=== PATIENT | female | born 1980 | race Two or more races ===

== ENCOUNTER 2017-11-23 12:40 | Emergency (ER) | payer OTHER ==
[2017-11-23 13:08] VITALS: TEMP 98; BMI 25.0
--- NOTE | 2017-11-23 14:20 | PDOC ---
History of Present Illness - General Chief Complaint: Headache Stated Complaint: HEADACHE (PCP SENT) Time Seen by Provider: 11/23/17 14:18 History Source: Patient Exam Limitations: No Limitations - History of Present Illness Initial Comments: 11/23/17 14:19 CHIEF COMPLAINT: Headache HISTORY OF PRESENT ILLNESS: This is a 37-year-old female with a history of epilepsy on Lamictal, Depakote, Vimpat, and Keppra. She presents today for evaluation of headache and vomiting. She reports that she had a seizure, witnessed by her mother, on Monday and hit her head on the floor. Since then, she has had persistent frontal headaches. She reports unsteady gait. She does not have any change in vision or any focal weakness. She notes that she has had nausea/vomiting and generalized weakness since starting Vimpat. Vital signs on arrival are notable for blood pressure 135/50. Neurologist is Dr. Lee. REVIEW OF SYSTEMS: GENERAL/CONSTITUTIONAL: No fever or chills. No weakness. No weight change. HEAD, EYES, EARS, NOSE AND THROAT: No change in vision. No ear pain or discharge. No sore throat. CARDIOVASCULAR: No chest pain or palpitations. RESPIRATORY: No cough, wheezing, or shortness of breath. GASTROINTESTINAL: Vomiting. No diarrhea or constipation. GENITOURINARY: No dysuria, frequency, or change in urination. MUSCULOSKELETAL: No joint or muscle swelling or pain. No neck or back pain. SKIN: No rash or easy bruising. NEUROLOGIC: Headache. No vertigo, loss of consciousness, or loss of sensation. PSYCHIATRIC: No depression or anxiety. ENDOCRINE: No increased thirst. No abnormal weight change. HEMATOLOGIC/LYMPHATIC: No anemia, easy bleeding, or history of blood clots. ALLERGIC/IMMUNOLOGIC: No hives or skin allergy. No latex allergy. PHYSICAL EXAM: GENERAL: The patient is awake, alert, and fully oriented, in no acute distress. HEAD: Normal with no signs of trauma. ENT: Pupils equal, round and reactive to light, extraocular movements intact, sclera anicteric, conjunctiva clear. Neck supple. LUNGS: Clear to auscultation bilaterally. Normal excursion. No respiratory distress or use of accessory muscles. CV: RRR, S1/S2, no MRG. Cap refill < 2 sec. ABDOMEN: Soft, non-distended, non-tender. EXTREMITIES: Normal range of motion, no edema. NEUROLOGICAL: Normal speech, normal gait. CN II-XII grossly intact. Lateral nystagmus. PSYCH: Normal mood, normal affect. SKIN: Warm, dry, normal turgor, no rashes or lesions noted. Past History - Past Medical History Allergies/Adverse Reactions: Allergies Allergy/AdvReac Type Severity Reaction Status Date / Time No Known Allergies Allergy Verified 04/20/15 11:11 Home Medications: Ambulatory Orders Folic Acid 1 tab PO BID 10/16/17 Keppra 1,000 mg PO BID 10/16/17 Keppra 500 mg PO DAILY 10/16/17 Lamotrigine [Lamictal -] 200 mg PO BID 10/16/17 Protonix 40 mg PO DAILY 10/16/17 Ventolin HFA Inhaler - 1 puff IH PRN PRN 10/16/17 Vimpat 100 mg PO BID 10/16/17 Zonegran 100 mg PO BID 10/16/17 Asthma: Yes COPD: No Seizures: Yes - Suicide/Smoking/Psychosocial Hx Smoking History: Never smoked Have you smoked in the past 12 months: No Information on smoking cessation initiated: No Hx Alcohol Use: No Drug/Substance Use Hx: No Substance Use Type: None *Physical Exam - Vital Signs Last Vital Signs Temp Pulse Resp BP Pulse Ox 98.0 F 78 16 135/50 L 100 11/23/17 13:04 11/23/17 13:04 11/23/17 13:04 11/23/17 13:04 11/23/17 13:04 ED Treatment Course - RADIOLOGY Radiology Studies Ordered: Category Date Time Status HEAD CT WITHOUT CONTRAST [CT] Stat CT Scan 11/23/17 14:18 Ordered Medical Decision Making - Medical Decision Making 11/23/17 15:20 A/P: 37-year-old female with headache and unsteady gait s/p seizure and fall/ head trauma on Monday. -CT brain -AED levels -Reglan/benadryl for headache and nausea -Discuss with Dr. Lee 11/23/17 16:30 CT brain: no acute intracranial process. Symptoms improved. Discussed with Dr. Lee who agrees with discharge and will follow up with patient this evening. *DC/Admit/Observation/Transfer Diagnosis at time of Disposition: Closed head injury Qualifiers: Encounter type: initial encounter Qualified Code(s): S09.90XA - Unspecified injury of head, initial encounter Headache Qualifiers: Headache chronicity pattern: acute headache Intractability: not intractable - Discharge Dispostion Disposition: HOME Condition at time of disposition: Stable Decision to Admit order: No - Referrals Referrals: Shahla Lee MD [Staff Physician] - 3 days (Dr. Lee will call you this evening) - Patient Instructions Printed Discharge Instructions: DI for Closed Head Injury Additional Instructions: -Rest and stay well-hydrated -Take Tylenol as needed for headache -Follow up with Dr. Lee -Return for continued vomiting/inability to keep down fluids, or for any other concerning symptoms - Post Discharge Activity
[2017-11-23] MEDS ORDERED: ONDANSETRON *ODT* 4 MG TABLET SL ONE (14:51)
[2017-11-23] MEDS ORDERED: METOCLOPRAMIDE HCL 10 MG TABLET (FP) PO ONE ×2 (14:51→15:30)
[2017-11-23] MEDS ORDERED: ONDANSETRON *ODT* 4 MG TABLET ONE (15:29)
[2017-11-23 16:57] VITALS: BP 101/68; PULSE 75
== END 2017-11-23 16:54 | disposition home or self-care (01) ==
LOC: JER 12:40
DX: G40.909 Epilepsy, unspecified, not intractable, without status epilepticus (principal); S09.8XXA Other specified injuries of head, initial encounter; W18.39XA Other fall on same level, initial encounter; Y93.89 Activity, other specified; Y92.038 Other place in apartment as the place of occurrence of the external cause
CPT/HCPCS: 36415; 70450-TC; 80164; 80175; 80177; 84703; 99282-25; Q0162

== ENCOUNTER 2018-10-09 13:25 | Inpatient (IN) | payer OTHER ==
--- NOTE | 2018-10-09 21:35 | HP ---
Admitting History and Physical - Primary Care Physician PCP: Shahla Lee - Admission History of Present Illness: 37 year sold woman with hx of epilelpsy Came in for elective admission for 72 hours VEEG Poor seziure control on two AEd 37-year-old right-handed very pleasant woman with history of mild mental capacity problem, seizure disorder, and anxiety presented to the hospital for elective admission because of poorly controlled seizure. The problem is patient claims that she doesn't get a seizure her mother insists that she gets generalized tonic-clonic seizure patient in December 2017 had a video EEG monitoring at home which revealed evidence of left temporal complexes consistent with the patient's history of epilepsy. Patient is currently on Keppra 1000 mg twice daily Limitations to Obtaining History: No Limitations - Past Medical History ...LMP: 10/06/18 ...: No - Smoking History Smoking history: Never smoked Have you smoked in the past 12 months: No - Alcohol/Substance Use Hx Alcohol Use: No Home Medications - Allergies Allergies/Adverse Reactions: Allergies Allergy/AdvReac Type Severity Reaction Status Date / Time No Known Allergies Allergy Verified 04/20/15 11:11 - Home Medications Home Medications: Ambulatory Orders Folic Acid 1 mg PO BID 10/09/18 Levetiracetam [Spritam] 1,000 mg PO BID 10/09/18 Zonisamide 100 mg PO BID 10/09/18 Family Disease History - Family Disease History Family History: Denies (Sz) Review of Systems - Review of Systems Constitutional: reports: No Symptoms Eyes: reports: No Symptoms Neurological: reports: Dizziness, Headache, Incoordination Physical Examination Vital Signs: Vital Signs Temperature 97.8 F 10/09/18 17:59 Pulse Rate 70 10/09/18 17:59 Respiratory Rate 16 10/09/18 17:59 Blood Pressure 105/58 L 10/09/18 17:59 O2 Sat by Pulse Oximetry (%) 98 10/09/18 17:59 Constitutional: Yes: Well Nourished Eyes: Yes: WNL HENT: Yes: WNL Neurological: Yes: Alert, Oriented, Babinski negative ...Motor Strength: WNL Problem List - Problems (1) Seizure disorder Assessment/Plan: 1. Sz precautions 2. Keppralevel 3. VEEG with nocturnal digital analysis 4. Careful monitoring of the bradycardia with cardiology consult Code(s): G40.909 - EPILEPSY, UNSP, NOT INTRACTABLE, WITHOUT STATUS EPILEPTICUS
[2018-10-09] MEDS: ZONISAMIDE 100 MG CAPSULE PO SCH (23:13)
[2018-10-10 00:28] LABS: HEMATOCRIT 41.5 % (32.4-45.2); HEMOGLOBIN 13.6 GM/dL (10.7-15.3); MCH 32.3 pg (25.7-33.7); MCHC 32.8 g/dl (32.0-36.0); MEAN CELL VOLUME 98.6 fl (80-96); MEAN PLT VOLUME 9.8 fl (7.5-11.1); PLATELET COUNT 249 K/MM3 (134-434); RBC 4.21 M/mm3 (3.60-5.2); WHITE BLOOD COUNT 7.9 K/mm3 (4.0-10.0)
[2018-10-10 07:51] LABS: ALBUMIN 3.4 g/dl (3.4-5.0); BILIRUBIN,DIRECT 0.1 mg/dL (0.0-0.2); BILIRUBIN,TOTAL 0.2 mg/dL (0.2-1); CALCIUM 8.4 mg/dL (8.5-10.1); CREATININE 0.7 mg/dL (0.55-1.3); POTASSIUM 3.9 mmol/L (3.5-5.1); TOT PROT 6.7 g/dl (6.4-8.2)
[2018-10-10] MEDS ORDERED: PT OWN MED DRAWER 7, Y5N ONE ×2 (09:59→21:11)
--- NOTE | 2018-10-10 10:06 | EKG ---
Test Reason : Blood Pressure : / mmHG Vent. Rate : 072 BPM Atrial Rate : 072 BPM P-R Int : 152 ms QRS Dur : 080 ms QT Int : 400 ms P-R-T Axes : 069 074 051 degrees QTc Int : 438 ms NORMAL SINUS RHYTHM NORMAL ECG WHEN COMPARED WITH ECG OF 29-NOV-2008 20:59, VENT. RATE HAS DECREASED BY 37 BPM Confirmed by MAURA ALLAN, JOSE ANTONIO ([id number]) on 10/10/2018 10:05:54 AM Referred By: Confirmed By:JOSE ANTONIO LORENZO MD
[2018-10-10] MEDS: levETIRAcetam 500 MG TABLET (FP) PO SCH ×2 (10:07→21:19)
[2018-10-10] MEDS: ZONISAMIDE 100 MG CAPSULE PO SCH ×2 (10:07→21:19)
[2018-10-11] MEDS ORDERED: PT OWN MED DRAWER 7, Y5N ONE (08:50)
[2018-10-11] MEDS: ZONISAMIDE 100 MG CAPSULE PO SCH ×2 (09:26→21:25)
[2018-10-11] MEDS: levETIRAcetam 500 MG TABLET (FP) PO SCH ×2 (09:26→21:24)
--- NOTE | 2018-10-11 11:18 | CON.CARD ---
Consult Consult Specialty:: Cardiology Referred by:: Shahla Lacey MD Reason for Consultation:: Evaluate for bradyarrhythmia - History of Present Illness Chief Complaint: Video EEG monitoring History of Present Illness: 37 year old woman with hx of epilelpsy admitted for 72 hours VEEG as she has poor seizure control on 2 AED, 12/2017 VEEG shows left temporal complexes c/w epilepsy, has asymptomatic bradycardia overnight, she denies chest pain, dyspnea , near or true syncope , palpitations, orthopnea, PND or LE edema. - History Source History Provided By: Medical Record Limitations to Obtaining History: Clinical Condition - Past Medical History MARKETING INFORMATION COORDINATOR: Yes: Seizure ...LMP: 10/06/18 ...: No - Alcohol/Substance Use Hx Alcohol Use: No - Smoking History Smoking history: Never smoked Have you smoked in the past 12 months: No Home Medications - Allergies Allergies/Adverse Reactions: Allergies Allergy/AdvReac Type Severity Reaction Status Date / Time No Known Allergies Allergy Verified 04/20/15 11:11 - Home Medications Home Medications: Ambulatory Orders Folic Acid 1 mg PO BID 10/09/18 Levetiracetam [Spritam] 1,000 mg PO BID 10/09/18 Zonisamide 100 mg PO BID 10/09/18 Review of Systems - Review of Systems Neurological: reports: Seizure Vital Signs: Vital Signs Temperature 98.0 F 10/11/18 02:00 Pulse Rate 86 10/11/18 02:00 Respiratory Rate 18 10/11/18 09:00 Blood Pressure 100/63 10/11/18 02:00 O2 Sat by Pulse Oximetry (%) 100 10/11/18 09:00 Constitutional: Yes: No Distress, Calm Neck: Yes: Supple Respiratory: Yes: Regular, CTA Bilaterally Gastrointestinal: Yes: Normal Bowel Sounds, Soft Cardiovascular: Yes: Regular Rate and Rhythm JVD: No Carotid Bruit: No Heart Sounds: Yes: S1, S2 Edema: No - Other Data Labs, Other Data: CBC, BMP 10/10/18 00:00 10/10/18 06:20 NSR @ [address]-T changes Tele: AV block overnight Ejection Fraction %: LVEF > or = 40 % Problem List - Problems (1) Seizure disorder Code(s): G40.909 - EPILEPSY, UNSP, NOT INTRACTABLE, WITHOUT STATUS EPILEPTICUS (2) Bradycardia Code(s): R00.1 - BRADYCARDIA, UNSPECIFIED Assessment/Plan 1. Seizure d/o 2. Bradyarrhythmia with AV block overnight referable to high vagal tone vs undiagnosed OSAS P:1. Holter monitor to assess bradyarrhythmia burden, r/o pauses 2. VEEG and antiseizure meds per neuro, f/u Keppra level 3. Consider sleep study as outpatient 4. Thank you for consultative opportunity
--- NOTE | 2018-10-11 11:37 | PN ---
Progress Note, Physician History of Present Illness: events noted Chart reviewed Cardiology was called to evaluate the patient because of episodes of nocturnal bradycardia patient was not symptomatic. Patient did not have any episode of fainting dizziness shortness of breath associated with the patient was evaluated by cardiology this morning appreciated - Current Medication List Current Medications: Active Medications Levetiracetam (Keppra -) 1,000 mg PO BID [facility] Last Admin: 10/11/18 09:26 Dose: 1,000 mg Zonisamide (Zonegran -) 100 mg PO BID [facility] Last Admin: 10/11/18 09:26 Dose: 100 mg - Objective Vital Signs: Vital Signs Temperature 98 F 10/11/18 10:00 Pulse Rate 73 10/11/18 10:00 Respiratory Rate 18 10/11/18 10:00 Blood Pressure 98/64 10/11/18 10:00 O2 Sat by Pulse Oximetry (%) 100 10/11/18 09:00 Constitutional: Yes: Well Nourished Eyes: Yes: WNL HENT: Yes: WNL Neurological: Yes: Alert, Oriented, Babinski negative ...Motor Strength: WNL Labs: CBC, BMP 10/10/18 00:00 10/10/18 06:20 Problem List - Problems (1) Seizure disorder Assessment/Plan: 1. Continue the video EEG monitoring no events overnight. 2. Follow-up with cardiology. 3. Follow up the Keppra level. Code(s): G40.909 - EPILEPSY, UNSP, NOT INTRACTABLE, WITHOUT STATUS EPILEPTICUS
--- NOTE | 2018-10-11 12:24 | EKG ---
Test Reason : Blood Pressure : / mmHG Vent. Rate : 080 BPM Atrial Rate : 080 BPM P-R Int : 148 ms QRS Dur : 084 ms QT Int : 386 ms P-R-T Axes : 070 058 033 degrees QTc Int : 445 ms NORMAL SINUS RHYTHM NORMAL ECG WHEN COMPARED WITH ECG OF 09-OCT-2018 17:56, NONSPECIFIC T WAVE ABNORMALITY NOW EVIDENT IN INFERIOR LEADS Confirmed by MARLENY STAUFFER MD ([id number]) on 10/11/2018 12:23:32 PM [facility] Confirmed By:MARLENY STAUFFER MD
[2018-10-11 14:41] VITALS: BMI 30.8
[2018-10-12 06:57] VITALS: BP 94/68; PULSE 68; TEMP 98.1
[2018-10-12] MEDS ORDERED: PT OWN MED DRAWER 7, Y5N ONE (09:03)
--- NOTE | 2018-10-12 09:15 | PN ---
Progress Note, Physician Chief Complaint: Events noted Not in distress History of Present Illness: Patient was seen and examined. Awake and alert. Chart was reviewed Denies chest pain, SOB or palpitations EEG in progress - Current Medication List Current Medications: Active Medications Levetiracetam (Keppra -) 1,000 mg PO BID [facility] Last Admin: 10/11/18 21:24 Dose: 1,000 mg Zonisamide (Zonegran -) 100 mg PO BID [facility] Last Admin: 10/11/18 21:25 Dose: 100 mg - Objective Vital Signs: Vital Signs Temperature 98.1 F 10/12/18 06:56 Pulse Rate 68 10/12/18 06:56 Respiratory Rate 18 10/12/18 06:56 Blood Pressure 94/68 10/12/18 06:56 O2 Sat by Pulse Oximetry (%) 96 10/11/18 21:00 Eyes: Yes: PERRL HENT: Yes: Atraumatic Neck: Yes: Supple Cardiovascular: Yes: Regular Rate and Rhythm, S1, S2 Respiratory: Yes: CTA Bilaterally Gastrointestinal: Yes: Normal Bowel Sounds, Soft. No: Tenderness Edema: No Labs: CBC, BMP 10/10/18 00:00 10/10/18 06:20 Problem List - Problems (1) Bradycardia Code(s): R00.1 - BRADYCARDIA, UNSPECIFIED (2) Seizure disorder Code(s): G40.909 - EPILEPSY, UNSP, NOT INTRACTABLE, WITHOUT STATUS EPILEPTICUS Assessment/Plan 1. Seizure disorder 2. Bradyarrhythmia with AV block referable to high vagal tone vs. undiagnosed OSAS PLAN: 1. Holter monitor to assess bradyarrhythmia burden 2. EEG and continue Neuro recommendation 3. Consider sleep study as outpatient 4. Echocardiography to assess LV/RV and valvular function Edd Morrow MD
[2018-10-12] MEDS: ZONISAMIDE 100 MG CAPSULE PO SCH (09:22)
[2018-10-12] MEDS: levETIRAcetam 500 MG TABLET (FP) PO SCH (09:22)
--- NOTE | 2018-10-12 13:11 | ECHO ---
Name: SABRINA IRWIN Exam:Adult Echocardiogram Study Date: 10/12/2018 11:41 AM Age: 37 yrs Reason For Study: BRADYARRHYTHMIA Height: 67 in Weight: 198 lb BSA: 2.0 m2 MMode/2D Measurements & Calculations IVSd: 0.78 cm Ao root diam: 2.6 cm LVIDd: 4.0 cm LA dimension: 2.7 cm LVIDs: 2.7 cm LVPWd: 0.79 cm EDV(Teich): 71.1 ml LVOT diam: 2.0 cm ESV(Teich): 26.7 ml Doppler Measurements & Calculations MV E max esa: 47.0 cm/sec Ao V2 max: 122.5 cm/sec MV A max esa: 58.2 cm/sec Ao max P.0 mmHg MV E/A: 0.81 Ao V2 mean: 83.7 cm/sec MV dec time: 0.29 sec Ao mean P.2 mmHg Ao V2 VTI: 21.5 cm JARED(I,D): 1.6 cm2 AI P1/2t: 618.3 msec JARED(V,D): 1.7 cm2 AI max esa: 256.5 cm/sec LV V1 max P.0 mmHg AI max P.4 mmHg LV V1 mean P.0 mmHg AI dec slope: 121.5 cm/sec2 LV V1 max: 69.9 cm/sec LV V1 mean: 47.9 cm/sec LV V1 VTI: 11.5 cm SV(LVOT): 35.0 ml TR max esa: 175.3 cm/sec TR max P.4 mmHg Left Ventricle Ejection Fraction = 55-60%. Left ventricular systolic function is normal. The transmitral spectral Do ppler flow pattern is suggestive of impaired LV relaxation. Right Ventricle The right ventricle is normal in size and function. Atria Normal left and right atrial size and function. Mitral Valve The mitral valve is normal in structure and function. There is no mitral valve stenosis. There is tra ce to mild mitral regurgitation. Tricuspid Valve The tricuspid valve is normal in structure and function. There is mild tricuspid regurgitation. Right ventricular systolic pressure is normal. Aortic Valve The aortic valve opens well. No hemodynamically significant valvular aortic stenosis. Mild aortic regurgitation. Pulmonic Valve The pulmonic valve is not well seen, but is grossly normal. There is no pulmonic valvular stenosis. T here is no pulmonic valvular regurgitation. Great Vessels The aortic root is normal size. Pericardium/Pleura There is no pericardial effusion. Interpretation Summary Ejection Fraction = 55-60%. Left ventricular systolic function is normal. The transmitral spectral Doppler flow pattern is suggestive of impaired LV relaxation. The right ventricle is normal in size and function. There is trace to mild mitral regurgitation. There is mild tricuspid regurgitation. Right ventricular systolic pressure is normal. Mild aortic regurgitation. There is no pericardial effusion. MD Zamora *Joy 10/12/2018 01:11 PM
--- NOTE | 2018-10-12 13:59 | EKG ---
Test Reason : Blood Pressure : / mmHG Vent. Rate : 084 BPM Atrial Rate : 084 BPM P-R Int : 146 ms QRS Dur : 088 ms QT Int : 380 ms P-R-T Axes : 075 055 048 degrees QTc Int : 449 ms NORMAL SINUS RHYTHM NONSPECIFIC T WAVE ABNORMALITY ABNORMAL ECG WHEN COMPARED WITH ECG OF 11-OCT-2018 09:37, NO SIGNIFICANT CHANGE WAS FOUND Confirmed by SAMREEN DAVALOS MD ([id number]) on 10/12/2018 1:58:53 PM Referred By: [facility] Confirmed By:SAMREEN DAVALOS MD
--- NOTE | 2018-10-12 14:37 | HOL ---
Hook-up date: 2018-10-11 12:59:00 Duration: 23:31:00 Test Indications: BRADYCARDIA R/O PAUSES Medications: [id number] QRS complexes * Ventricular ectopics which represent % of total QRS comp. * Supraventricular ectopics which represent % of total QRS comp. * Paced QRS complexs which represent % of total QRS comp. * % of Time Classified as Noise VENTRICULAR ECTOPY * Isolated * Bigeminal Cycles * Couplets * Runs * Beats in Runs * Beats LONGEST at * BPM at :: -- * Beats FASTEST at * BPM at :: -- SUPRAVENTRICULAR ECTOPY * Isolated * Couplets * Runs * Beats in Runs * Beats LONGEST at * BPM at :: -- * Beats FASTEST at * BPM at :: -- HEART RATES 45 MIN at 05:47:44 2018-10-12 79 AVG 145 MAX at 15:27:54 2018-10-11 LONGEST RR 1.424 secs at 05:47:39 2018-10-12 Normal sinus rhythm with average rate 79bpm. Periods of sinus tachycardia. Sinus bradycardia noted, during sleep hours. No significant pauses. No sustained arrhythmias, ventricular ectopy or diary entries. Confirmed by SAMREEN DAVALOS MD ([id number]) on 10/12/2018 2:37:25 PM Referred By: SHELLY PAULINO DR Overread By: SAMREEN DAVALOS MD
== END 2018-10-12 15:05 | disposition home or self-care (01) | DRG 53 ==
LOC: J4S 17:05
PROVIDERS: ADMIT Psychiatry & Neurology Neurology; ATTEND Psychiatry & Neurology Neurology
DX: G40.909 Epilepsy, unspecified, not intractable, without status epilepticus (principal); I49.8 Other specified cardiac arrhythmias; F41.9 Anxiety disorder, unspecified; G47.33 Obstructive sleep apnea (adult) (pediatric)
CPT/HCPCS: 36415; 80048; 80076; 80177; 85027; 93005; 93010; 93225; 93226; 93306-TC; 95951

== ENCOUNTER 2019-10-01 09:34 | Inpatient (IN) | payer OTHER ==
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
[2019-10-01] MEDS ORDERED: ACETAMINOPHEN 500 MG TABLET (FP) PO PRN (18:04)
[2019-10-01] MEDS ORDERED: LORazepam 2 MG/ML SDV VIAL IVPUSH PRN (18:06)
[2019-10-01 18:45] LABS: HEMATOCRIT 41.6 % (32.4-45.2); HEMOGLOBIN 13.6 GM/dl (10.7-15.3); MCH 32.5 pg (25.7-33.7); MCHC 32.8 g/dl (32.0-36.0); MEAN CELL VOLUME 98.9 fl (80-96); MEAN PLT VOLUME 9.9 fl (7.5-11.1); PLATELET COUNT 248 K/MM3 (134-434); RDW 12.7 % (11.6-15.6); WHITE BLOOD COUNT 11.5 K/mm3 (4.0-10.8)
[2019-10-01] MEDS: levETIRAcetam 500 MG TABLET (FP) PO SCH (21:45)
[2019-10-01] MEDS: ZONISAMIDE 100 MG CAPSULE PO SCH (21:47)
[2019-10-02] MEDS: ZONISAMIDE 100 MG CAPSULE PO SCH ×2 (10:25→22:15)
[2019-10-02] MEDS: levETIRAcetam 500 MG TABLET (FP) PO SCH ×2 (10:25→22:14)
--- NOTE | 2019-10-02 14:42 | PN ---
Progress Note, Physician History of Present Illness: events noted chart reviewed patient is under the elective video EEG monitoring no report of any seizure activity no report from the nurses of any problem. - Current Medication List Current Medications: Active Medications Acetaminophen (Tylenol -) 500 mg PO Q6H PRN PRN Reason: FEVER OR PAIN Levetiracetam (Keppra -) 1,000 mg PO BID [facility] Last Admin: 10/01/19 21:45 Dose: 1,000 mg Documented by: Lorazepam (Ativan Injection -) 1 mg IVPUSH DAILY PRN PRN Reason: SEIZURE Zonisamide (Zonegran -) 100 mg PO BID [facility] Last Admin: 10/01/19 21:47 Dose: 100 mg Documented by: - Objective Vital Signs: Vital Signs Temperature 99.5 F 10/02/19 14:34 Pulse Rate 72 10/02/19 14:34 Respiratory Rate 16 10/02/19 14:34 Blood Pressure 95/62 10/02/19 14:34 O2 Sat by Pulse Oximetry (%) 100 10/02/19 14:34 Constitutional: Yes: Well Nourished Eyes: Yes: WNL HENT: Yes: WNL Neurological: Yes: Alert, Oriented, Babinski negative, Cran Nerves II-XII Intact Labs: CBC, BMP 10/01/19 18:15 Problem List - Problems (1) Closed head injury Assessment/Plan: 1. Seizure precautions. 2. Continue the video EEG monitoring. 3. Keppra level. 4. Continue Zonegran the same Code(s): S09.90XA - UNSPECIFIED INJURY OF HEAD, INITIAL ENCOUNTER (2) Headache Code(s): R51 - HEADACHE (3) Seizure disorder Code(s): G40.909 - EPILEPSY, UNSP, NOT INTRACTABLE, WITHOUT STATUS EPILEPTICUS
[2019-10-02] MEDS ORDERED: PT OWN MED DRAWER 7, Y5N ONE (22:07)
[2019-10-03] MEDS ORDERED: PT OWN MED DRAWER 7, Y5N ONE (09:17)
[2019-10-03] MEDS: ZONISAMIDE 100 MG CAPSULE PO SCH ×2 (09:41→22:54)
[2019-10-03] MEDS: levETIRAcetam 500 MG TABLET (FP) PO SCH (09:41)
--- NOTE | 2019-10-03 20:32 | PN ---
Progress Note, Physician History of Present Illness: I walked in and the patient said hi and developed a seizure GTC Needed Ativan 4mg No IV access - Current Medication List Current Medications: Active Medications Acetaminophen (Tylenol -) 500 mg PO Q6H PRN PRN Reason: FEVER OR PAIN Levetiracetam (Keppra -) 1,000 mg PO BID [facility] Last Admin: 10/03/19 09:41 Dose: 1,000 mg Documented by: Lorazepam (Ativan Injection -) 1 mg IVPUSH DAILY PRN PRN Reason: SEIZURE Zonisamide (Zonegran -) 100 mg PO BID [facility] Last Admin: 10/03/19 09:41 Dose: 100 mg Documented by: - Objective Vital Signs: Vital Signs Temperature 99.0 F 10/03/19 14:00 Pulse Rate 83 10/03/19 14:00 Respiratory Rate 18 10/03/19 14:00 Blood Pressure 100/66 10/03/19 14:00 O2 Sat by Pulse Oximetry (%) 99 10/03/19 14:00 Constitutional: Yes: Well Nourished Eyes: Yes: WNL Neurological: Yes: Oriented, Babinski negative, Cran Nerves II-XII Intact Labs: CBC, BMP 10/01/19 18:15 Problem List - Problems (1) Closed head injury Assessment/Plan: 1. Ativan IM 2 .IV access 3. Keppra 500 additional 4. Keppra level 5. Seizure precaution 6. Might have to add Vimpat Code(s): S09.90XA - UNSPECIFIED INJURY OF HEAD, INITIAL ENCOUNTER (2) Headache Code(s): R51 - HEADACHE (3) Seizure disorder Code(s): G40.909 - EPILEPSY, UNSP, NOT INTRACTABLE, WITHOUT STATUS EPILEPTICUS
[2019-10-03] MEDS ORDERED: LORazepam 2 MG/ML SDV VIAL IM ONE (21:54)
[2019-10-03] MEDS ORDERED: LORazepam 2 MG/ML SDV VIAL ONE ×2 (21:54→22:23)
[2019-10-03] MEDS ORDERED: levETIRAcetam 500 MG/5 ML INJECTION VIAL IVPB ONE ×2 (22:02)
[2019-10-03] MEDS: LORazepam 2 MG/ML SDV VIAL IVPUSH PRN ×2 (22:15→22:30)
[2019-10-03] MEDS: levETIRAcetam 500 MG/5 ML INJECTION VIAL IVPB SCH (22:21)
[2019-10-03] MEDS ORDERED: VALPROATE SODIUM 500 MG/5 ML VIAL IVPB ONE (23:00)
[2019-10-03] MEDS ORDERED: SODIUM CHLORIDE 1,000 ML IV SCH (23:45)
[2019-10-04] MEDS ORDERED: ETOMIDATE 40 MG/20 ML VIAL IVPUSH ONE (00:03)
[2019-10-04] MEDS ORDERED: SUCCINYLCHOLINE CHLORIDE 200 MG/10 ML VIAL IVPUSH ONE (00:04)
[2019-10-04] MEDS ORDERED: PROPOFOL 200 MG/20 ML VIAL IVPUSH ONE (00:04)
[2019-10-04] MEDS ORDERED: VALPROATE SODIUM 500 MG/5 ML VIAL IVPB ONE (00:05)
--- NOTE | 2019-10-04 00:16 | PDOC ---
*Physical Exam - Vital Signs Last Vital Signs Temp Pulse Resp BP Pulse Ox 98.6 F 124 H 16 108/78 99 10/03/19 22:00 10/03/19 22:00 10/03/19 22:00 10/03/19 22:00 10/03/19 22:00 - Physical Exam 10/04/19 00:11 Called to patient's bedside at 10:30 pm secondary to status epilepticus. When I initially arrived at the patient's bedside, she was lethargic and had rhythmic twitching movements every time she was stimulated. Keppra load ordered by Dr. Lee had not been given because IV had inadvertently become disconnected. After keppra load was given, patient became more tachycardic and somulent. She also had dilated pupils and rhythmic eye movements. Depakene load started. I discussed the case with Dr. Lee, who agreed that the patient should be intubated prior to transfer to [facility] ICU. ED Treatment Course - LABORATORY CBC & Chemistry Diagram: 10/01/19 18:15 - ADDITIONAL ORDERS Additional order review: 10/01/19 18:15 RBC 4.20 MCV 98.9 H MCHC 32.8 RDW 12.7 MPV 9.9 - RADIOLOGY Radiology Studies Ordered: Category Date Time Status CXRPORT [CHEST X-RAY PORTABLE*] [RAD] Stat Radiology 10/04/19 00:05 Ordered - Medications Given in the ED: ED Medications Discontinued Medications Generic Name Dose Route Start Last Admin Trade Name Freq PRN Reason Stop Dose Admin Levetiracetam 1,000 mg 10/01/19 22:00 10/03/19 09:41 Keppra - PO 1,000 mg BID [facility]TO Administration Lorazepam 2 mg 10/03/19 21:54 10/03/19 20:30 Ativan Injection - IM 10/03/19 21:55 2 mg ONCE ONE Administration Medical Decision Making - Critical Care Time Total Critical Care Time (minutes): 120 Critical Care Statement: The care of this patient involved high complexity decision making to prevent further life threatening deterioration of the patient's condition and/or to evaluate & treat vital organ system(s) failure or risk of failure. Discharge - Discharge Information Problems reviewed: Yes Clinical Impression/Diagnosis: Status epilepticus - Follow up/Referral - Patient Discharge Instructions - Post Discharge Activity Intubation - Intubation Reason for Intubation: Other (status epilepticus) Intubation Method: orotracheal Blade used: Mac Tube Size (cm): 7.5 Tube position @ lip (cm): 22 Tube position confirmed by: Direct visualization, CO2 detector Breath Sounds after Intubation: equal Post Intubation Xray: Yes
[2019-10-04] MEDS: PROPOFOL 1,000,000 MCG/100 ML VIAL IVPUSH SCH ×3 (01:45→22:45)
[2019-10-04] MEDS ORDERED: MIDAZOLAM 100 MG in SODIUM CHLORIDE 100 ML IVPB SCH (02:15)
[2019-10-04 02:37] LABS: URINE APPEARANCE CLEAR; URINE BILIRUBIN NEGATIVE (NEGATIVE); URINE COLOR YELLOW; URINE GLUCOSE (UA) NEGATIVE (NEGATIVE); URINE KETONE NEGATIVE (NEGATIVE); URINE LEUK ESTERASE NEGATIVE (NEGATIVE); URINE NITRITE NEGATIVE (NEGATIVE); URINE PROTEIN NEGATIVE (NEGATIVE); URINE UROBILINOGEN 0.2 mg/dL (0.2-1.0)
[2019-10-04] MEDS ORDERED: MIDAZOLAM IN 0.9 % SOD.CHLORID 100 MG/100 ML PLAST..BAG IVPB SCH (02:37)
[2019-10-04 02:52] LABS: COCAINE, UR NEGATIVE ng/ml (CUTOFF=300); METHADONE, UR NEGATIVE ng/ml (CUTOFF=300); OPIATES, URI NEGATIVE ng/ml (CUTOFF=300); PHENCYCLIDINE,URINE NEGATIVE ng/ml (CUTOFF=25); URINE BARBITURATES NEGATIVE ng/ml (CUTOFF=200); URINE BENZODIAZEPINES NEGATIVE ng/ml (CUTOFF=200)
[2019-10-04] MEDS: MIDAZOLAM IN 0.9 % SOD.CHLORID 100 MG/100 ML PLAST..BAG IVPB SCH ×2 (03:00→20:00)
[2019-10-04 03:09] LABS: URINE AMPHETAMINES NEGATIVE ng/ml (CUTOFF=500)
--- NOTE | 2019-10-04 03:52 | CONSULT ---
Consultation: REQUESTING PROVIDER: Dr. Shahla Lee CONSULT REQUEST: We have been asked to medically evaluate this patient for Refractory Generalized Status Epilepticus. HISTORY OF PRESENT ILLNESS: This is a 38 y/o F with a PMHx of anxiety, fibromylagia, and seizure disorder (on 2 antiseizure medications) sent from [facility] for mgmt of refractory status epilepticus. Pt was at [facility] for video EEG monitoring and while speaking to the physician, the pt began to seize. Pt was lorazepam 2 mg with minimal effect and another was needed (Total of 6 given for 3 separate seizure episodes per nursing report. Pt became somnolent with dilated pupils and rhythmic eye movements so call placed to ED (Dr. Cruz) who gave 1000 mg of depakote. Pt was sedated with propofol and intubated at that time and transferred to our ICU. REVIEW OF SYSTEMS: unobtainable given pt sedated and intubated. PHYSICAL EXAMINATION Vital Signs - 24 hr 10/03/19 10/03/19 10/03/19 06:00 09:00 14:00 Temperature 97.7 F 99.0 F Pulse Rate 61 83 Respiratory 18 18 18 Rate Blood Pressure 94/61 100/66 O2 Sat by Pulse 100 100 99 Oximetry (%) 10/03/19 10/04/19 22:00 01:58 Temperature 98.3 F Pulse Rate 114 H Respiratory 20 27 H Rate Blood Pressure 108/78 O2 Sat by Pulse 97 100 Oximetry (%) GENERAL: pt sedated RASS -3 HEENT: Normal with no signs of trauma. Pupils equal, round and reactive to light. LUNGS: Breath sounds equal, clear to auscultation bilaterally. No wheezes, and no crackles. No accessory muscle use. HEART: Regular rate and rhythm, normal S1 and S2 without murmur, rub or gallop. ABDOMEN: Soft, not distended, normoactive bowel sounds. UPPER EXTREMITIES: 2+ pulses, warm, well-perfused. No cyanosis. No clubbing. Cap refill <2 seconds. No peripheral edema. 20 gauge IV on RUE LOWER EXTREMITIES: 2+ pulses, warm, well-perfused. No calf tenderness. No peripheral edema. 20 gauge IV on LLE NEUROLOGICAL: withdraws to pain until sedation increased and had some ? jerking movements so versed drip increased SKIN: Warm, dry, normal turgor, ecchymoses in L antecubital Laboratory Results - last 24 hr 10/04/19 10/04/19 10/04/19 02:10 02:10 02:10 POC Glucometer Urine Color Yellow Urine Appearance Clear Urine pH 7.0 Ur Specific Atkinson 1.010 Urine Protein Negative Urine Glucose (UA) Negative Urine Ketones Negative Urine Blood Negative Urine Nitrite Negative Urine Bilirubin Negative Urine Urobilinogen 0.2 Ur Leukocyte Esterase Negative Urine HCG, Qual Negative Opiates Screen Negative Methadone Screen Negative Barbiturate Screen Negative Phencyclidine Screen Negative Ur Amphetamines Screen Negative MDMA (Ecstasy) Screen Negative Benzodiazepines Screen Negative Cocaine Screen Negative U Marijuana (THC) Screen Negative 10/04/19 03:24 POC Glucometer 104 Urine Color Urine Appearance Urine pH Ur Specific [place] Urine Protein Urine Glucose (UA) Urine Ketones Urine Blood Urine Nitrite Urine Bilirubin Urine Urobilinogen Ur Leukocyte Esterase Urine HCG, Qual Opiates Screen Methadone Screen Barbiturate Screen Phencyclidine Screen Ur Amphetamines Screen MDMA (Ecstasy) Screen Benzodiazepines Screen Cocaine Screen U Marijuana (THC) Screen Active Medications Generic Name Dose Route Start Last Admin Trade Name Freq PRN Reason Stop Dose Admin Acetaminophen 500 mg 10/01/19 18:04 Tylenol - PO Q6H PRN FEVER OR PAIN Chlorhexidine Gluconate 1 applic 10/04/19 22:00 Hibiclens For Decolonization - TP HS [facility] Enoxaparin Sodium 40 mg 10/04/19 10:00 Lovenox - SQ DAILY [facility] Sodium Chloride 1,000 mls @ 75 mls/hr 10/03/19 23:45 10/04/19 00:55 Normal Saline - IV 75 mls/hr ASDIR [facility] Administration Propofol 1,000,000 mcg in 100 mls @ 2.715 mls/hr 10/04/19 00:15 Diprivan - IVPUSH 10/05/19 23:59 TITR [facility] Protocol 5 MCG/KG/MIN Midazolam HCl 100 mg in 100 mls @ 1 mls/hr 10/04/19 03:30 Midazolam 100mg/100ml-0.9%Nacl IVPB TITR [facility] Protocol 1 MG/HR Levetiracetam 1,000 mg 10/03/19 22:00 10/03/19 22:21 Keppra Injection - IVPB 1,000 mg BID [facility] Administration Lorazepam 1 mg 08/25/20 18:06 Ativan Injection - IVPUSH DAILY PRN SEIZURE Lorazepam 2 mg 10/04/19 10:00 10/03/19 20:15 Ativan Injection - IM 2 mg DAILY PRN Administration ANXIETY Lorazepam 2 mg 10/04/19 00:37 10/03/19 22:30 Ativan Injection - IVPUSH 2 mg Q15M PRN Administration SEIZURES Mupirocin 1 applic 10/04/19 10:00 Bactroban Ointment (For Decolonization) - NS 10/09/19 09:59 BID [facility] Zonisamide 100 mg 10/01/19 22:00 10/03/19 22:54 Zonegran - PO Not Given BID [facility] ASSESSMENT/PLAN: 38 YO F PMH anxiety, fibromylagia, and seizure disorder sent from [facility] for status epilepticus. #Neuro - intubated and sedated with Dhaliwal agitation and sedation scale (RASS) -5 after increased sedation -Refractory Generalized Status Epilepticus s/p 6mg ativan in 3 separate pushes for multiple seizure episodes. Pt subsequently intubated and sedated with propofol in [facility] by Dr. Cruz. Pt loaded with 1000 depakote and Keppra as well. - As per neuro recs, upon arrival we bolused with midazolam and started continuous infusion for both sedation and cessation of her seizure like activity. - neuro checks q2h for seizure like activity in which nurse notified she may go as high as 18 mg bolus (9-18 per her wt according to uptodate 0.2mg/kg bolus) Confirmed by pharmacy. -seizure, fall, aspiration precautions -utox negative, UA negative, negative for , glucose 107 -f/u Keppra level in AM as pt is a very difficult stick and abg to follow in AM as well after multiple failed attempts with ultrasound. -c/w Zonegran, may start vimpat in AM as per neuro recs #ID -Leukocytosis with a WBC count of 11.5. - pt is afebrile w/o signs of sepsis - likely reactive from seizure - rpt cbc in am -f/u CXR in AM #Cardio - tachycardic on transport, EKG ordered awaiting result - Echo from 10/12/2018: EF55-60%, LV systolic function normal, mild mitral/tricuspid regurg. - pt had episode of bradycardia during 10/2018 admission #Pulm - intubated TV 450 PEEP 5, RR12 ,50% O2 and sedated on prop and versed with a RASS of -5. -CXR performed after the pt was intubated at [facility] confirmed proper placement. D/w . No acute findings on cxr. -f/u repeat CXR in AM #Renal - no acute renal issues at this time -f/u CMP #Psych h/o anxiety continue home meds #DVT ppx Lovenox 40 daily #FEN NS @100 ml/hr Monitor lytes NPO, speech/swallow consult in AM Dispo: We will continue to follow the patient. Thank you for this consultative opportunity. ATTENDING PHYSICIAN STATEMENT I saw and evaluated the patient. I reviewed the resident's note and discussed the case with the resident. I agree with the resident's findings and plan as documented. SUBJECTIVE: OBJECTIVE: ASSESSMENT AND PLAN:
[2019-10-04 06:12] LABS: ARTERIAL BLD GAS O2 SATURATION 98.9 mmHg (95-98); ARTERIAL BLOOD GAS BASE EXCESS -4.3 mmol/L (-2-2); ARTERIAL BLOOD GAS PO2 149.8 mmHg (80-100); ARTERIAL BLOOD GAS pH 7.364 (7.350-7.450)
[2019-10-04 06:47] LABS: ALLENS TEST POSITIVE
[2019-10-04 06:49] LABS: VENT MODE A/C; VENT RATE 12
[2019-10-04 07:27] LABS: ALBUMIN 3.8 g/dl (3.4-5.0); BILIRUBIN,TOTAL 0.2 mg/dL (0.2-1); BLOOD UREA NITROGEN 12.4 mg/dL (7-18); CALCIUM 8.7 mg/dL (8.5-10.1); CREATININE 0.8 mg/dL (0.55-1.3); MAGNESIUM 2.3 mg/dL (1.8-2.4); PHOSPHOROUS 3.4 mg/dL (2.5-4.9); TOT PROT 7.6 g/dl (6.4-8.2)
[2019-10-04 08:59] LABS: BASO % 0.6 % (0-2.0); EOS % 0.5 % (0-4.5); HEMOGLOBIN 13.9 GM/dL (10.7-15.3); LYMPH % 20.4 % (8-40); MCH 31.3 pg (25.7-33.7); MCHC 33.1 g/dl (32.0-36.0); MEAN CELL VOLUME 94.6 fl (80-96); MEAN PLT VOLUME 10.4 fl (7.5-11.1); MONO % 6.1 % (3.8-10.2); NEUT % 72.4 % (42.8-82.8); PLATELET COUNT 273 K/MM3 (134-434); RBC 4.44 M/mm3 (3.60-5.2); RDW 13.1 % (11.6-15.6); WHITE BLOOD COUNT 14.9 K/mm3 (4.0-10.0)
[2019-10-04] MEDS ORDERED: LORazepam 2 MG/ML SDV VIAL IM PRN (10:00)
[2019-10-04] MEDS: levETIRAcetam 500 MG/5 ML INJECTION VIAL IVPB SCH ×2 (10:06→22:03)
[2019-10-04] MEDS: ENOXAPARIN NA (PORCINE) 40 MG/0.4 ML DISP.SYRIN SQ SCH (10:08)
[2019-10-04] MEDS: SODIUM CHLORIDE 1,000 ML IV SCH (10:08)
[2019-10-04] MEDS: MUPIROCIN 2% TOPICAL OINTMENT FOR DECOLONIZATION NS SCH ×2 (10:11→22:04)
--- NOTE | 2019-10-04 10:58 | EKG ---
Test Reason : Blood Pressure : / mmHG Vent. Rate : 112 BPM Atrial Rate : 112 BPM P-R Int : 118 ms QRS Dur : 078 ms QT Int : 328 ms P-R-T Axes : -03 081 008 degrees QTc Int : 447 ms POOR DATA QUALITY, INTERPRETATION MAY BE ADVERSELY AFFECTED SINUS TACHYCARDIA NONSPECIFIC ST ABNORMALITY WHEN COMPARED WITH ECG OF 12-OCT-2018 09:39, NO SIGNIFICANT CHANGE WAS FOUND Confirmed by ANOOP ALLAN, SAMREEN ([id number]) on 10/04/2019 10:57:56 AM Referred By: Cosmo Cooper Confirmed By:SAMREEN DAVALOS MD
--- NOTE | 2019-10-04 11:29 | PN ---
Teaching Attending Note Name of Resident: Tanika Little ATTENDING PHYSICIAN STATEMENT I saw and evaluated the patient. I reviewed the resident's note and discussed the case with the resident. I agree with the resident's findings and plan as documented. SUBJECTIVE: Pt seen and examined in the ICU. Remains intubated, sedated. Still some b reakthrough seizure activity. OBJECTIVE: Vital Signs Period Temp Pulse Resp BP Sys/Henderson Pulse Ox Last 24 Hr 98.3 F-99.0 F 83-124 16-27 93-122/66-78 97-100 Intake & Output 10/01/19 10/02/19 10/03/19 10/04/19 23:59 23:59 23:59 23:59 Intake Total 1275 500 830.5 Output Total 0 Balance 1275 500 830.5 Weight 86.183 kg 90.804 kg 90.492 kg 92.705 kg Gen: intubated, sedated Heart: RRR Lung: decreased breath sounds at the bases Abd: soft, nontender Ext: no edema CBC, BMP 10/04/19 06:10 10/04/19 06:10 Active Medications Acetaminophen (Tylenol -) 500 mg PO Q6H PRN PRN Reason: FEVER OR PAIN Chlorhexidine Gluconate (Hibiclens For Decolonization -) 1 applic TP HS [facility] Enoxaparin Sodium (Lovenox -) 40 mg SQ DAILY [facility] Last Admin: 10/04/19 10:08 Dose: 40 mg Documented by: Propofol (Diprivan -) 1,000,000 mcg in 100 mls @ 2.715 mls/hr IVPUSH TITR [facility]; Protocol Stop: 10/05/19 23:59 Last Titration: 10/04/19 10:26 Dose: 50 mcg/kg/min, 27.148 mls/hr Documented by: Midazolam HCl (Midazolam 100mg/100ml-0.9%Nacl) 100 mg in 100 mls @ 1 mls/hr IVPB TITR [facility]; Protocol Last Infusion: 10/04/19 10:00 Dose: 10 mg/hr, 10 mls/hr Documented by: Sodium Chloride (Normal Saline -) 1,000 mls @ 100 mls/hr IV ASDIR [facility] Last Admin: 10/04/19 10:08 Dose: 100 mls/hr Documented by: Levetiracetam (Keppra Injection -) 1,000 mg IVPB BID [facility] Last Admin: 10/04/19 10:06 Dose: 1,000 mg Documented by: Lorazepam (Ativan Injection -) 1 mg IVPUSH DAILY PRN PRN Reason: SEIZURE Lorazepam (Ativan Injection -) 2 mg IM DAILY PRN PRN Reason: ANXIETY Last Admin: 10/03/19 20:15 Dose: 2 mg Documented by: Lorazepam (Ativan Injection -) 2 mg IVPUSH Q15M PRN PRN Reason: SEIZURES Last Admin: 10/03/19 22:30 Dose: 2 mg Documented by: Mupirocin (Bactroban Ointment (For Decolonization) -) 1 applic NS BID [facility] Stop: 10/09/19 09:59 Last Admin: 10/04/19 10:11 Dose: 1 applic Documented by: Zonisamide (Zonegran -) 100 mg PO BID [facility] Last Admin: 10/03/19 22:54 Dose: Not Given Documented by: ASSESSMENT AND PLAN: Acute Respiratory Failure Status Epilepticus - titrate sedation - titrate antiepileptics - f/u keppra level - when seizures controlled, lighten sedation to assess mental status - spontaneous breathing trials when off sedation - DVT prophylaxis - continue ICU monitoring critical care time spent in reviewing chart, evaluating patient and formulating plan 35 min
--- NOTE | 2019-10-04 12:03 | PN ---
Physical Exam: SUBJECTIVE: Patient seen and examined bedside, intubated, sedated on propofol and midazolam OBJECTIVE: Vital Signs 10/04/19 10/04/19 10/04/19 04:39 05:00 07:00 Pulse Rate 101 H 107 H Respiratory 21 H 22 H 19 Rate Blood Pressure 93/69 100/76 O2 Sat by Pulse 100 100 100 Oximetry (%) GENERAL: Patient intubated and sedated HEENT: PERRL LUNGS: Breath sounds equal, CTA BL HEART: RRR, normal S1 and S2 ABDOMEN: Soft, not distended, normoactive bowel sounds. EXTREMITIES: warm, well-perfused. NEUROLOGICAL: withdraws to pain SKIN: Warm, dry Laboratory Results - last 24 hr 10/04/19 10/04/19 10/04/19 02:10 02:10 02:10 WBC RBC Hgb Hct MCV MCH MCHC RDW Plt Count MPV Absolute Neuts (auto) Neutrophils % Lymphocytes % Monocytes % Eosinophils % Basophils % Nucleated RBC % Anticoagulation Therapy Puncture Site Patient Temperature ABG pH ABG pCO2 ABG pO2 ABG HCO3 ABG O2 Sat (Measured) ABG O2 Content ABG Base Excess Kip Test Patient On Oxygen O2 Delivery Device Oxygen Flow Rate Vent Mode Vent Rate Mechanical Rate PEEP Pressure Support Vent Sodium Potassium Chloride Carbon Dioxide Anion Gap BUN Creatinine Est GFR (CKD-EPI)AfAm Est GFR (CKD-EPI)NonAf POC Glucometer Random Glucose Calcium Phosphorus Magnesium Total Bilirubin AST ALT Alkaline Phosphatase Total Protein Albumin Urine Color Yellow Urine Appearance Clear Urine pH 7.0 Ur Specific Luc[place] 1.010 Urine Protein Negative Urine Glucose (UA) Negative Urine Ketones Negative Urine Blood Negative Urine Nitrite Negative Urine Bilirubin Negative Urine Urobilinogen 0.2 Ur Leukocyte Esterase Negative Urine HCG, Qual Negative Opiates Screen Negative Methadone Screen Negative Barbiturate Screen Negative Phencyclidine Screen Negative Ur Amphetamines Screen Negative MDMA (Ecstasy) Screen Negative Benzodiazepines Screen Negative Cocaine Screen Negative U Marijuana (THC) Screen Negative 10/04/19 10/04/19 10/04/19 03:24 05:30 06:10 WBC RBC Hgb Hct MCV MCH MCHC RDW Plt Count MPV Absolute Neuts (auto) Neutrophils % Lymphocytes % Monocytes % Eosinophils % Basophils % Nucleated RBC % Anticoagulation Therapy No Result Required. Puncture Site Right brachial Patient Temperature No Result Required. ABG pH 7.364 ABG pCO2 36.60 ABG pO2 149.8 H ABG HCO3 20.4 L ABG O2 Sat (Measured) 98.9 H ABG O2 Content No Result Required. ABG Base Excess -4.3 L Ikp Test Positive Patient On Oxygen Yes O2 Delivery Device Vent Oxygen Flow Rate 50% Vent Mode A/c Vent Rate 12 Mechanical Rate No Result Required. PEEP 5.0 Pressure Support Vent 450 Sodium 139 Potassium 4.0 Chloride 108 H Carbon Dioxide 24 Anion Gap 7 L BUN 12.4 Creatinine 0.8 Est GFR (CKD-EPI)AfAm 107.64 Est GFR (CKD-EPI)NonAf 92.87 POC Glucometer 104 Random Glucose 89 Calcium 8.7 Phosphorus 3.4 Magnesium 2.3 Total Bilirubin 0.2 AST 16 ALT 13 Alkaline Phosphatase 94 Total Protein 7.6 Albumin 3.8 Urine Color Urine Appearance Urine pH Ur Specific Luckey Urine Protein Urine Glucose (UA) Urine Ketones Urine Blood Urine Nitrite Urine Bilirubin Urine Urobilinogen Ur Leukocyte Esterase Urine HCG, Qual Opiates Screen Methadone Screen Barbiturate Screen Phencyclidine Screen Ur Amphetamines Screen MDMA (Ecstasy) Screen Benzodiazepines Screen Cocaine Screen U Marijuana (THC) Screen 10/04/19 06:10 WBC 14.9 H RBC 4.44 Hgb 13.9 Hct 42.0 MCV 94.6 MCH 31.3 MCHC 33.1 RDW 13.1 Plt Count 273 MPV 10.4 Absolute Neuts (auto) 10.8 H Neutrophils % 72.4 Lymphocytes % 20.4 D Monocytes % 6.1 Eosinophils % 0.5 Basophils % 0.6 Nucleated RBC % 0 Anticoagulation Therapy Puncture Site Patient Temperature ABG pH ABG pCO2 ABG pO2 ABG HCO3 ABG O2 Sat (Measured) ABG O2 Content ABG Base Excess Kip Test Patient On Oxygen O2 Delivery Device Oxygen Flow Rate Vent Mode Vent Rate Mechanical Rate PEEP Pressure Support Vent Sodium Potassium Chloride Carbon Dioxide Anion Gap BUN Creatinine Est GFR (CKD-EPI)AfAm Est GFR (CKD-EPI)NonAf POC Glucometer Random Glucose Calcium Phosphorus Magnesium Total Bilirubin AST ALT Alkaline Phosphatase Total Protein Albumin Urine Color Urine Appearance Urine pH Ur Specific [place] Urine Protein Urine Glucose (UA) Urine Ketones Urine Blood Urine Nitrite Urine Bilirubin Urine Urobilinogen Ur Leukocyte Esterase Urine HCG, Qual Opiates Screen Methadone Screen Barbiturate Screen Phencyclidine Screen Ur Amphetamines Screen MDMA (Ecstasy) Screen Benzodiazepines Screen Cocaine Screen U Marijuana (THC) Screen Active Medications Generic Name Dose Route Start Last Admin Trade Name Freq PRN Reason Stop Dose Admin Acetaminophen 500 mg 10/01/19 18:04 Tylenol - PO Q6H PRN FEVER OR PAIN Chlorhexidine Gluconate 1 applic 10/04/19 22:00 Hibiclens For Decolonization - TP HS [place] Enoxaparin Sodium 40 mg 10/04/19 10:00 10/04/19 10:08 Lovenox - SQ 40 mg DAILY [place] Administration Propofol 1,000,000 mcg in 100 mls @ 2.715 mls/hr 10/04/19 00:15 10/04/19 10:26 Diprivan - IVPUSH 10/05/19 23:59 50 mcg/kg/min TITR [place] 27.148 mls/hr Titration Protocol 5 MCG/KG/MIN Midazolam HCl 100 mg in 100 mls @ 1 mls/hr 10/04/19 03:30 10/04/19 10:00 Midazolam 100mg/100ml-0.9%Nacl IVPB 10 mg/hr TITR [place] 10 mls/hr Infusion Protocol 1 MG/HR Sodium Chloride 1,000 mls @ 100 mls/hr 10/04/19 08:30 10/04/19 10:08 Normal Saline - IV 100 mls/hr ASDIR [place] Administration Levetiracetam 1,000 mg 10/03/19 22:00 10/04/19 10:06 Keppra Injection - IVPB 1,000 mg BID [place] Administration Lorazepam 1 mg 10/01/19 18:06 Ativan Injection - IVPUSH DAILY PRN SEIZURE Lorazepam 2 mg 10/04/19 10:00 10/03/19 20:15 Ativan Injection - IM 2 mg DAILY PRN Administration ANXIETY Lorazepam 2 mg 10/04/19 00:37 10/03/19 22:30 Ativan Injection - IVPUSH 2 mg Q15M PRN Administration SEIZURES Mupirocin 1 applic 10/04/19 10:00 10/04/19 10:11 Bactroban Ointment (For Decolonization) - NS 10/09/19 09:59 1 applic BID [facility] Administration Zonisamide 100 mg 10/01/19 22:00 10/03/19 22:54 Zonegran - PO Not Given BID [facility] ASSESSMENT/PLAN: 38 YO F PMH anxiety, fibromylagia, and seizure disorder sent from [facility] for refractory status epilepticus requiring intubation and sedation. #Neuro - intubated and sedated propofol and midazolam - Refractory Generalized Status Epilepticus on keppra -f/u Keppra level in AM as pt is a very difficult stick and abg to follow in AM as well after multiple failed attempts with ultrasound. -c/w Zonegran, may start vimpat in AM as per neuro recs Pulm - intubated and on propofol for sedation Cardio - EKG sinus tachy ID - pt is afebrile w/o signs of sepsis - utox negative, UA negative, negative for , glucose 107 Renal - no acute renal issues at this time -f/u CMP Psych h/o anxiety continue home meds DVT ppx - Lovenox 40 daily FEN - NS @100 ml/hr - Monitor lytes - NPO Visit type - Emergency Visit Emergency Visit: Yes ED Registration Date: 10/01/19 Care time: The patient presented to the Emergency Department on the above date and was hospitalized for further evaluation of their emergent condition. - New Patient This patient is new to me today: No - Critical Care Critical Care patient: Yes Total Critical Care Time (in minutes): 38 Critical Care Statement: The care of this patient involved high complexity decision making to prevent further life threatening deterioration of the patient's condition and/or to evaluate & treat vital organ system(s) failure or risk of failure. - Discharge Referral Referred to [facility] Med [facility] No ATTENDING PHYSICIAN STATEMENT I saw and evaluated the patient. I reviewed the resident's note and discussed the case with the resident. I agree with the resident's findings and plan as documented. SUBJECTIVE: OBJECTIVE: ASSESSMENT AND PLAN:
[2019-10-04] MEDS ORDERED: PT OWN MED DRAWER 7, Y5N ONE ×2 (12:21→21:54)
[2019-10-04] MEDS: ZONISAMIDE 100 MG CAPSULE PO SCH ×2 (12:56→22:45)
[2019-10-04] MEDS: LORazepam 2 MG/ML SDV VIAL IVPUSH PRN (17:33)
--- NOTE | 2019-10-04 20:19 | PN ---
Progress Note, Physician History of Present Illness: events noted Chart reviwed [facility] Continued sezsiung with postictal confusion requiring intubation Versed ICU and Propafol Seen today WBC reactuive Intuabted sedated no sp movements - Current Medication List Current Medications: Active Medications Acetaminophen (Tylenol -) 500 mg PO Q6H PRN PRN Reason: FEVER OR PAIN Chlorhexidine Gluconate (Hibiclens For Decolonization -) 1 applic TP HS [facility] Enoxaparin Sodium (Lovenox -) 40 mg SQ DAILY [facility] Last Admin: 10/04/19 10:08 Dose: 40 mg Documented by: Propofol (Diprivan -) 1,000,000 mcg in 100 mls @ 2.715 mls/hr IVPUSH TITR [facility]; Protocol Stop: 10/05/19 23:59 Last Titration: 10/04/19 10:26 Dose: 50 mcg/kg/min, 27.148 mls/hr Documented by: Midazolam HCl (Midazolam 100mg/100ml-0.9%Nacl) 100 mg in 100 mls @ 1 mls/hr IVPB TITR [facility]; Protocol Last Infusion: 10/04/19 10:00 Dose: 10 mg/hr, 10 mls/hr Documented by: Sodium Chloride (Normal Saline -) 1,000 mls @ 100 mls/hr IV ASDIR [facility] Last Admin: 10/04/19 10:08 Dose: 100 mls/hr Documented by: Levetiracetam (Keppra Injection -) 1,000 mg IVPB BID [facility] Last Admin: 10/04/19 10:06 Dose: 1,000 mg Documented by: Lorazepam (Ativan Injection -) 1 mg IVPUSH DAILY PRN PRN Reason: SEIZURE Lorazepam (Ativan Injection -) 2 mg IM DAILY PRN PRN Reason: ANXIETY Last Admin: 10/03/19 20:15 Dose: 2 mg Documented by: Lorazepam (Ativan Injection -) 2 mg IVPUSH Q15M PRN PRN Reason: SEIZURES Last Admin: 10/04/19 17:33 Dose: 2 mg Documented by: Mupirocin (Bactroban Ointment (For Decolonization) -) 1 applic NS BID [facility] Stop: 10/09/19 09:59 Last Admin: 10/04/19 10:11 Dose: 1 applic Documented by: Zonisamide (Zonegran -) 100 mg PO BID [facility] Last Admin: 10/04/19 12:56 Dose: 100 mg Documented by: - Objective Vital Signs: Vital Signs Temperature 97.9 F 10/04/19 17:00 Pulse Rate 104 H 10/04/19 17:00 Respiratory Rate 21 H 10/04/19 17:00 Blood Pressure 116/90 10/04/19 17:00 O2 Sat by Pulse Oximetry (%) 100 10/04/19 17:00 Constitutional: Yes: Well Nourished Eyes: Yes: WNL Neurological: Yes: Babinski negative, Other Labs: CBC, BMP 10/04/19 06:10 10/04/19 06:10 Problem List - Problems (1) Closed head injury Code(s): S09.90XA - UNSPECIFIED INJURY OF HEAD, INITIAL ENCOUNTER (2) Headache Code(s): R51 - HEADACHE (3) Seizure disorder Code(s): G40.909 - EPILEPSY, UNSP, NOT INTRACTABLE, WITHOUT STATUS EPILEPTICUS Assessment/Plan Status Prolonged postictal Intubated 1. Neuro checks 2. Max Keppra 1500 mg IV q12 3. Ativan prn 4. Taper Versed 5. taper Propfol 6. Prolactin level Case discussed with mom, RN and resident
[2019-10-04] MEDS ORDERED: levETIRAcetam 500 MG/5 ML INJECTION VIAL IVPB ONE (20:24)
[2019-10-04] MEDS: CHLORHEXIDINE GLUCONATE 4% CLEANSER FOR DECOLONIZATION TP SCH (22:05)
[2019-10-05] MEDS: SODIUM CHLORIDE 1,000 ML IV SCH (08:31)
[2019-10-05] MEDS: MIDAZOLAM IN 0.9 % SOD.CHLORID 100 MG/100 ML PLAST..BAG IVPB SCH (08:39)
[2019-10-05] MEDS: ENOXAPARIN NA (PORCINE) 40 MG/0.4 ML DISP.SYRIN SQ SCH (09:32)
[2019-10-05] MEDS: levETIRAcetam 500 MG/5 ML INJECTION VIAL IVPB SCH ×2 (09:33→21:30)
--- NOTE | 2019-10-05 11:11 | PN ---
Teaching Attending Note Name of Resident: Ti Bolaños ATTENDING PHYSICIAN STATEMENT I saw and evaluated the patient. I reviewed the resident's note and discussed the case with the resident. I agree with the resident's findings and plan as documented. SUBJECTIVE: Pt seen and examined in the ICU. Remains intubated, sedated. No further seizures noted. OBJECTIVE: Vital Signs Period Temp Pulse Resp BP Sys/Henderson Pulse Ox Last 24 Hr 97.1 F-99.3 F 74-104 12-21 97-116/70-90 85-100 Intake & Output 10/02/19 10/03/19 10/04/19 10/05/19 23:59 23:59 23:59 23:59 Intake Total 1010 076 5250.5 1666 Output Total 0 850 500 Balance 1275 500 180.5 1166 Weight 90.804 kg 90.492 kg 92.705 kg 92.703 kg Gen: intubated, sedated Heart: RRR Lung: decreased breath sounds at the bases Abd: soft, nontender Ext: no edema CBC, BMP 10/04/19 06:10 10/04/19 06:10 Active Medications Acetaminophen (Tylenol -) 500 mg PO Q6H PRN PRN Reason: FEVER OR PAIN Chlorhexidine Gluconate (Hibiclens For Decolonization -) 1 applic TP HS [facility] Last Admin: 10/04/19 22:05 Dose: 1 applic Documented by: Enoxaparin Sodium (Lovenox -) 40 mg SQ DAILY [facility] Last Admin: 10/05/19 09:32 Dose: 40 mg Documented by: Propofol (Diprivan -) 1,000,000 mcg in 100 mls @ 2.715 mls/hr IVPUSH TITR [facility]; Protocol Stop: 10/05/19 23:59 Last Titration: 10/05/19 10:10 Dose: 0 mcg/kg/min, 0 mls/hr Documented by: Midazolam HCl (Midazolam 100mg/100ml-0.9%Nacl) 100 mg in 100 mls @ 1 mls/hr IVPB TITR [facility]; Protocol Last Infusion: 10/05/19 10:10 Dose: 0 mg/hr, 0 mls/hr Documented by: Sodium Chloride (Normal Saline -) 1,000 mls @ 100 mls/hr IV ASDIR [facility] Last Admin: 10/05/19 08:31 Dose: 100 mls/hr Documented by: Levetiracetam (Keppra Injection -) 1,500 mg IVPB BID [facility] Last Admin: 10/05/19 09:33 Dose: 1,500 mg Documented by: Lorazepam (Ativan Injection -) 1 mg IVPUSH DAILY PRN PRN Reason: SEIZURE Lorazepam (Ativan Injection -) 2 mg IM DAILY PRN PRN Reason: ANXIETY Last Admin: 10/03/19 20:15 Dose: 2 mg Documented by: Lorazepam (Ativan Injection -) 2 mg IVPUSH Q15M PRN PRN Reason: SEIZURES Last Admin: 10/04/19 17:33 Dose: 2 mg Documented by: Mupirocin (Bactroban Ointment (For Decolonization) -) 1 applic NS BID [facility] Stop: 10/09/19 09:59 Last Admin: 10/04/19 22:04 Dose: 1 applic Documented by: Zonisamide (Zonisamide) 100 mg NGT BID [facility] ASSESSMENT AND PLAN: Acute Respiratory Failure Status Epilepticus - titrate antiepileptics - f/u keppra level - lighten sedation to assess mental status - spontaneous breathing trials when off sedation and wean to extubate - DVT prophylaxis - continue ICU monitoring critical care time spent in reviewing chart, evaluating patient and formulating plan 35 min
--- NOTE | 2019-10-05 11:28 | PN ---
Progress Note, Physician History of Present Illness: events noted Spoke to The RN Still sedated Intubated Not vent dependant Suctioning cause grimacing - Current Medication List Current Medications: Active Medications Acetaminophen (Tylenol -) 500 mg PO Q6H PRN PRN Reason: FEVER OR PAIN Chlorhexidine Gluconate (Hibiclens For Decolonization -) 1 applic TP HS [facility] Last Admin: 10/04/19 22:05 Dose: 1 applic Documented by: Enoxaparin Sodium (Lovenox -) 40 mg SQ DAILY [facility] Last Admin: 10/05/19 09:32 Dose: 40 mg Documented by: Propofol (Diprivan -) 1,000,000 mcg in 100 mls @ 2.715 mls/hr IVPUSH TITR [facility]; Protocol Stop: 10/05/19 23:59 Last Titration: 10/05/19 10:10 Dose: 0 mcg/kg/min, 0 mls/hr Documented by: Midazolam HCl (Midazolam 100mg/100ml-0.9%Nacl) 100 mg in 100 mls @ 1 mls/hr IVPB TITR [facility]; Protocol Last Infusion: 10/05/19 10:10 Dose: 0 mg/hr, 0 mls/hr Documented by: Sodium Chloride (Normal Saline -) 1,000 mls @ 100 mls/hr IV ASDIR [facility] Last Admin: 10/05/19 08:31 Dose: 100 mls/hr Documented by: Levetiracetam (Keppra Injection -) 1,500 mg IVPB BID [facility] Last Admin: 10/05/19 09:33 Dose: 1,500 mg Documented by: Lorazepam (Ativan Injection -) 1 mg IVPUSH DAILY PRN PRN Reason: SEIZURE Lorazepam (Ativan Injection -) 2 mg IM DAILY PRN PRN Reason: ANXIETY Last Admin: 10/03/19 20:15 Dose: 2 mg Documented by: Lorazepam (Ativan Injection -) 2 mg IVPUSH Q15M PRN PRN Reason: SEIZURES Last Admin: 10/04/19 17:33 Dose: 2 mg Documented by: Mupirocin (Bactroban Ointment (For Decolonization) -) 1 applic NS BID [facility] Stop: 10/09/19 09:59 Last Admin: 10/04/19 22:04 Dose: 1 applic Documented by: Zonisamide (Zonisamide) 100 mg NGT BID [facility] - Objective Vital Signs: Vital Signs Temperature 99.3 F 10/05/19 10:00 Pulse Rate 76 10/05/19 10:00 Respiratory Rate 16 10/05/19 10:00 Blood Pressure 112/77 10/05/19 10:00 O2 Sat by Pulse Oximetry (%) 100 10/05/19 09:45 Constitutional: Yes: Well Nourished Eyes: Yes: WNL Neurological: Yes: Alert, Babinski positive (comatose no sp) Labs: CBC, BMP 10/04/19 06:10 10/04/19 06:10 Problem List - Problems (1) Closed head injury Code(s): S09.90XA - UNSPECIFIED INJURY OF HEAD, INITIAL ENCOUNTER (2) Headache Code(s): R51 - HEADACHE (3) Seizure disorder Code(s): G40.909 - EPILEPSY, UNSP, NOT INTRACTABLE, WITHOUT STATUS EPILEPTICUS Assessment/Plan Taper versed Keppra 1500 mg iv q12 propafol Vent monitor with ICU team to wean
[2019-10-05] MEDS ORDERED: PT OWN MED DRAWER 7, Y5N ONE ×3 (11:58→21:28)
[2019-10-05] MEDS: ZONISAMIDE 100 MG/10 ML ORAL SUSPENSION NGT SCH ×2 (15:45→21:30)
[2019-10-05 16:23] LABS: HEMATOCRIT 37.9 % (32.4-45.2); HEMOGLOBIN 12.6 GM/dL (10.7-15.3); MCH 31.7 pg (25.7-33.7); MCHC 33.2 g/dl (32.0-36.0); MEAN CELL VOLUME 95.4 fl (80-96); MEAN PLT VOLUME 9.7 fl (7.5-11.1); PLATELET COUNT 230 K/MM3 (134-434); RBC 3.97 M/mm3 (3.60-5.2); RDW 13.3 % (11.6-15.6)
[2019-10-05 16:47] LABS: ALK PHOS 84 U/L (45-117); ANION GAP 11 MMOL/L (8-16); BILIRUBIN,TOTAL 0.4 mg/dL (0.2-1); BLOOD UREA NITROGEN 7.3 mg/dL (7-18); CALCIUM 8.3 mg/dL (8.5-10.1); CHLORIDE 111 mmol/L (98-107); CO2 20 mmol/L (21-32); CREATININE 0.5 mg/dL (0.55-1.3); GLUCOSE,RANDOM 83 mg/dL (74-106); POTASSIUM 3.7 mmol/L (3.5-5.1); SGOT/AST 15 U/L (15-37); SGPT/ALT 11 U/L (13-61); SODIUM 142 mmol/L (136-145); TOT PROT 6.5 g/dl (6.4-8.2)
[2019-10-05] MEDS: MUPIROCIN 2% TOPICAL OINTMENT FOR DECOLONIZATION NS SCH ×2 (17:23→21:23)
[2019-10-05] MEDS: PROPOFOL 1,000,000 MCG/100 ML VIAL IVPUSH SCH (21:22)
[2019-10-05] MEDS: CHLORHEXIDINE GLUCONATE 4% CLEANSER FOR DECOLONIZATION TP SCH (21:30)
--- NOTE | 2019-10-05 23:58 | PN ---
Physical Exam: SUBJECTIVE: Patient seen and examined. Sedated and intubated. OBJECTIVE: GENERAL: Patient intubated and sedated HEENT: PERRL LUNGS: Breath sounds equal, CTA BL HEART: RRR, normal S1 and S2 ABDOMEN: Soft, not distended, normoactive bowel sounds. EXTREMITIES: warm, well-perfused. NEUROLOGICAL: withdraws to pain SKIN: Warm, dry Vital Signs Period Temp Pulse Resp BP Sys/Henderson Pulse Ox Last 24 Hr 97.5 F-100.9 F 74-110 12-23 101-140/67-94 85-100 Laboratory Results - last 24 hr 10/04/19 10/05/19 10/05/19 06:00 15:30 15:30 WBC 14.0 H RBC 3.97 Hgb 12.6 Hct 37.9 MCV 95.4 MCH 31.7 MCHC 33.2 RDW 13.3 Plt Count 230 MPV 9.7 Sodium 142 Potassium 3.7 Chloride 111 H Carbon Dioxide 20 L Anion Gap 11 BUN 7.3 Creatinine 0.5 L Est GFR (CKD-EPI)AfAm 141.30 Est GFR (CKD-EPI)NonAf 121.92 Random Glucose 83 Calcium 8.3 L Phosphorus 3.0 Magnesium 2.0 Total Bilirubin 0.4 AST 15 ALT 11 L Alkaline Phosphatase 84 Creatine Kinase 187 Creatine Kinase Index No Result Required. CK-MB (CK-2) < 1.0 Total Protein 6.5 Albumin 3.0 L COVID-19 ([facility]) Not detected Active Medications Generic Name Dose Route Start Last Admin Trade Name Freq PRN Reason Stop Dose Admin Acetaminophen 500 mg 10/01/19 18:04 Tylenol - PO Q6H PRN FEVER OR PAIN Chlorhexidine Gluconate 1 applic 10/04/19 22:00 10/05/19 21:30 Hibiclens For Decolonization - TP 1 applic HS [facility] Administration Enoxaparin Sodium 40 mg 10/04/19 10:00 10/05/19 09:32 Lovenox - SQ 40 mg DAILY [facility] Administration Propofol 1,000,000 mcg in 100 mls @ 2.715 mls/hr 10/04/19 00:15 10/05/19 21:22 Diprivan - IVPUSH 10/05/19 23:59 50 mcg/kg/min TITR [facility] 27.148 mls/hr Administration Protocol 5 MCG/KG/MIN Midazolam HCl 100 mg in 100 mls @ 1 mls/hr 10/04/19 03:30 10/05/19 10:10 Midazolam 100mg/100ml-0.9%Nacl IVPB 0 mg/hr TITR [facility] 0 mls/hr Infusion Protocol 1 MG/HR Sodium Chloride 1,000 mls @ 100 mls/hr 10/04/19 08:30 10/05/19 08:31 Normal Saline - IV 100 mls/hr ASD[facility] Administration Levetiracetam 1,500 mg 10/04/19 20:23 10/05/19 21:30 Keppra Injection - IVPB 1,500 mg BID [facility] Administration Lorazepam 1 mg 10/01/19 18:06 Ativan Injection - IVPUSH DAILY PRN SEIZURE Lorazepam 2 mg 10/04/19 10:00 10/03/19 20:15 Ativan Injection - IM 2 mg DAILY PRN Administration ANXIETY Lorazepam 2 mg 10/04/19 00:37 10/04/19 17:33 Ativan Injection - IVPUSH 2 mg Q15M PRN Administration SEIZURES Mupirocin 1 applic 10/04/19 10:00 10/05/19 21:23 Bactroban Ointment (For Decolonization) - NS 10/09/19 09:59 1 applic BID [facility] Administration Zonisamide 100 mg 10/05/19 12:00 10/05/19 21:30 Zonisamide NGT 100 mg BID [facility] Administration ASSESSMENT/PLAN: 38 YO F PMH anxiety, fibromylagia, and seizure disorder sent from [place] for refractory status epilepticus requiring intubation and sedation. #Neuro - intubated and sedated propofol and midazolam - Refractory Generalized Status Epilepticus - Max Keppra 1500 mg IV q12, Ativan prn, Taper Versed , taper Propfol - PT was taken off both propofol and versed today to stop sedation and possible extubation. Pt was on CPAP PSV, but pt was not awake for sedation so started back on small dose of sedation will try again tomorrow -f/u Keppra level in AM as pt is a very difficult stick and abg to follow in AM as well after multiple failed attempts with ultrasound. -c/w Zonegran, may start vimpat in AM as per neuro recs Pulm - intubated and sedated - Planned extubation for 10/04, but pt was not arousable enough to awake. Cardio - EKG sinus tachy ID - Pt wbc elevated to 14.7 now 14.0 will get blood cultures and rule out any infectious etiology - will monitor WBC count Renal - no acute renal issues at this time -f/u CMP Psych h/o anxiety continue home meds DVT ppx - Lovenox 40 daily FEN - NS @100 ml/hr - Monitor lytes - NPO Visit type - Emergency Visit Emergency Visit: Yes ED Registration Date: 10/01/19 Care time: The patient presented to the Emergency Department on the above date and was hospitalized for further evaluation of their emergent condition. - New Patient This patient is new to me today: No - Critical Care Critical Care patient: Yes Total Critical Care Time (in minutes): 36 Critical Care Statement: The care of this patient involved high complexity decision making to prevent further life threatening deterioration of the patient's condition and/or to evaluate & treat vital organ system(s) failure or risk of failure. ATTENDING PHYSICIAN STATEMENT I saw and evaluated the patient. I reviewed the resident's note and discussed the case with the resident. I agree with the resident's findings and plan as documented. SUBJECTIVE: OBJECTIVE: ASSESSMENT AND PLAN:
[2019-10-06] MEDS: PROPOFOL 1,000,000 MCG/100 ML VIAL IVPUSH SCH ×2 (01:00→05:00)
[2019-10-06] MEDS ORDERED: PROPOFOL 1,000,000 MCG/100 ML VIAL ONE (05:16)
[2019-10-06 05:47] LABS: ARTERIAL BLD GAS O2 SATURATION 98.5 mmHg (95-98); ARTERIAL BLOOD GAS BASE EXCESS -4.9 mmol/L (-2-2); ARTERIAL BLOOD GAS PO2 125.8 mmHg (80-100); ARTERIAL BLOOD GAS pH 7.388 (7.350-7.450)
[2019-10-06 05:56] LABS: ALLENS TEST POSITIVE
[2019-10-06 05:57] LABS: VENT MODE A/C
[2019-10-06 05:58] LABS: VENT RATE 12
[2019-10-06] MEDS: MIDAZOLAM IN 0.9 % SOD.CHLORID 100 MG/100 ML PLAST..BAG IVPB SCH (06:51)
[2019-10-06] MEDS: ENOXAPARIN NA (PORCINE) 40 MG/0.4 ML DISP.SYRIN SQ SCH (09:49)
[2019-10-06] MEDS: levETIRAcetam 500 MG/5 ML INJECTION VIAL IVPB SCH ×2 (09:49→21:39)
[2019-10-06] MEDS: ZONISAMIDE 100 MG/10 ML ORAL SUSPENSION NGT SCH ×2 (09:58→13:27)
--- NOTE | 2019-10-06 10:48 | PN ---
Teaching Attending Note Name of Resident: Marly Morris ATTENDING PHYSICIAN STATEMENT I saw and evaluated the patient. I reviewed the resident's note and discussed the case with the resident. I agree with the resident's findings and plan as documented. SUBJECTIVE: Pt seen and examined in the ICU. Remains intubated, arousable off sedation and following commands. No further seizures noted. Low grade fevers overnight. Placed on CPAP/PS with good respiratory effort and RSBI so subsequently extubated during rounds. OBJECTIVE: Vital Signs Period Temp Pulse Resp BP Sys/Henderson Pulse Ox Last 24 Hr 99.9 F-100.9 F 68-110 14-23 108-140/67-94 99-100 Intake & Output 10/03/19 10/04/19 10/05/19 10/06/19 23:59 23:59 23:59 23:59 Intake Total 500 1030.5 2826 1499 Output Total 0 850 1100 1000 Balance 500 180.5 1726 499 Weight 90.492 kg 92.705 kg 92.703 kg 92 kg Gen: extubated Heart: RRR Lung: decreased breath sounds at the bases Abd: soft, nontender Ext: no edema CBC, BMP 10/05/19 15:30 10/05/19 15:30 ASSESSMENT AND PLAN: Acute Respiratory Failure Status Epilepticus - pt extubated - culture if febrile - titrate antiepileptics - f/u keppra level - DVT prophylaxis - continue ICU monitoring critical care time spent in reviewing chart, evaluating patient and formulating plan 35 min
[2019-10-06] MEDS ORDERED: LORazepam 1 MG TABLET PO PRN (13:37)
[2019-10-06 14:56] VITALS: BMI 31.6
--- NOTE | 2019-10-06 17:36 | PN ---
Physical Exam: SUBJECTIVE: Patient seen and examined. Sitting on a chair and watching TV. OBJECTIVE: PHYSICAL EXAM: GENERAL: Patient extubated HEENT: Anicteric, acyanosed. EOMI LUNGS: Breath sounds equal HEART: RRR, normal S1 and S2 ABDOMEN: Soft, not distended, normoactive bowel sounds. EXTREMITIES: Warm, well perfused NEUROLOGICAL: AXOX3. Sitting up and watching TV SKIN: Warm, dry Vital Signs Period Temp Pulse Resp BP Sys/Henderson Pulse Ox Last 24 Hr 99.9 F-100.9 F 68-98 15-20 103-128/67-84 100-100 Laboratory Results - last 24 hr 10/06/19 05:30 Anticoagulation Therapy No Result Required. Puncture Site Right brachial Patient Temperature No Result Required. ABG pH 7.388 ABG pCO2 32.60 L ABG pO2 125.8 H ABG HCO3 19.2 L ABG O2 Sat (Measured) 98.5 H ABG O2 Content No Result Required. ABG Base Excess -4.9 L Kip Test Positive Patient On Oxygen Yes O2 Delivery Device Vent Oxygen Flow Rate 40% Vent Mode A/c Vent Rate 12 Mechanical Rate No Result Required. PEEP 5.0 Pressure Support Vent 450 Active Medications Generic Name Dose Route Start Last Admin Trade Name Freq PRN Reason Stop Dose Admin Acetaminophen 500 mg 10/01/19 18:04 Tylenol - PO Q6H PRN FEVER OR PAIN Chlorhexidine Gluconate 1 applic 10/04/19 22:00 10/05/19 21:30 Hibiclens For Decolonization - TP 1 applic HS [facility] Administration Enoxaparin Sodium 40 mg 10/04/19 10:00 10/06/19 09:49 Lovenox - SQ 40 mg DAILY [facility] Administration Sodium Chloride 1,000 mls @ 100 mls/hr 10/04/19 08:30 10/05/19 08:31 Normal Saline - IV 100 mls/hr ASD[facility] Administration Levetiracetam 1,500 mg 10/04/19 20:23 10/06/19 09:49 Keppra Injection - IVPB 1,500 mg BID [facility] Administration Lorazepam 2 mg 10/04/19 10:00 10/03/19 20:15 Ativan Injection - IM 2 mg DAILY PRN Administration ANXIETY Lorazepam 2 mg 10/06/19 13:37 Ativan - PO DAILY PRN ANXIETY Mupirocin 1 applic 10/04/19 10:00 10/05/19 21:23 Bactroban Ointment (For Decolonization) - NS 10/09/19 09:59 1 applic BID [facility] Administration Zonisamide 100 mg 10/05/19 12:00 10/06/19 13:27 Zonisamide NGT 100 mg BID [facility] Administration ASSESSMENT/PLAN: 38 YO F PMH anxiety, fibromylagia, and seizure disorder sent from [place] for refractory status epilepticus requiring intubation and sedation. #Neuro -Patient extubated,propofol dc -Refractory Generalized Status Epilepticus - Max Keppra 1500 mg IV q12, Ativan prn, -Titrate and follow-up keppra level Pulm -Extubated in AM, on 4L O2 by nasal cannula Cardio - Last EKG 10/01/19: sinus tachy ID -Pt wbc elevated to 14.7 -Blood culture and CBC repeat ordered. Follow-up results -Continue to monitor WBC count Renal - no acute renal issues at this time -f/u CMP as required Psych -H/O anxiety -Continue home meds FEN - NS @100 ml/hr - Monitor lytes and replete prn - NPO #DISPOSITION: - DVT prophylaxis: Levonox 40mg SQ daily - continue ICU monitoring Visit type - Emergency Visit Emergency Visit: No - New Patient This patient is new to me today: Yes Date on this admission: 10/06/19 - Critical Care Critical Care patient: Yes Total Critical Care Time (in minutes): 6 ATTENDING PHYSICIAN STATEMENT I saw and evaluated the patient. I reviewed the resident's note and discussed the case with the resident. I agree with the resident's findings and plan as documented. SUBJECTIVE: OBJECTIVE: ASSESSMENT AND PLAN:
[2019-10-06] MEDS: SODIUM CHLORIDE 1,000 ML IV SCH (18:14)
[2019-10-06] MEDS: MUPIROCIN 2% TOPICAL OINTMENT FOR DECOLONIZATION NS SCH ×2 (18:14→21:40)
[2019-10-06] MEDS ORDERED: PT OWN MED DRAWER 7, Y5N ONE ×2 (21:33→22:50)
[2019-10-06] MEDS: CHLORHEXIDINE GLUCONATE 4% CLEANSER FOR DECOLONIZATION TP SCH (21:39)
[2019-10-06] MEDS ORDERED: ZONISAMIDE 100 MG/10 ML ORAL SUSPENSION NGT SCH (21:42)
[2019-10-06] MEDS: ZONISAMIDE 100 MG/10 ML ORAL SUSPENSION PO SCH (23:32)
[2019-10-07 06:56] LABS: BASO % 0.5 % (0-2.0); EOS % 1.4 % (0-4.5); HEMATOCRIT 35.1 % (32.4-45.2); HEMOGLOBIN 11.9 GM/dL (10.7-15.3); LYMPH % 24.2 % (8-40); MCH 31.9 pg (25.7-33.7); MCHC 33.9 g/dl (32.0-36.0); MEAN CELL VOLUME 94.2 fl (80-96); MEAN PLT VOLUME 10.1 fl (7.5-11.1); MONO % 7.4 % (3.8-10.2); NEUT % 66.5 % (42.8-82.8); PLATELET COUNT 209 K/MM3 (134-434); RBC 3.73 M/mm3 (3.60-5.2); RDW 12.7 % (11.6-15.6); WHITE BLOOD COUNT 10.2 K/mm3 (4.0-10.0)
[2019-10-07 07:22] LABS: ALBUMIN 2.9 g/dl (3.4-5.0); BILIRUBIN,TOTAL 0.4 mg/dL (0.2-1); BLOOD UREA NITROGEN 10.8 mg/dL (7-18); CALCIUM 8.2 mg/dL (8.5-10.1); CREATININE 0.6 mg/dL (0.55-1.3); POTASSIUM 3.5 mmol/L (3.5-5.1); TOT PROT 6.2 g/dl (6.4-8.2)
[2019-10-07] MEDS ORDERED: PT OWN MED DRAWER 7, Y5N ONE ×4 (07:48→21:38)
--- NOTE | 2019-10-07 08:57 | PN ---
Progress Note, Physician History of Present Illness: events noted the chart reviewed seen in the medical ICU extubated awake alert No seizure overnight Fully attentive Currently on combination of the Keppra and the zonogram - Current Medication List Current Medications: Active Medications Acetaminophen (Tylenol -) 500 mg PO Q6H PRN PRN Reason: FEVER OR PAIN Last Admin: 10/06/19 21:40 Dose: 500 mg Documented by: Chlorhexidine Gluconate (Hibiclens For Decolonization -) 1 applic TP HS [facility] Last Admin: 10/06/19 21:39 Dose: 1 applic Documented by: Enoxaparin Sodium (Lovenox -) 40 mg SQ DAILY [facility] Last Admin: 10/06/19 09:49 Dose: 40 mg Documented by: Sodium Chloride (Normal Saline -) 1,000 mls @ 100 mls/hr IV ASDIR [facility] Last Admin: 10/06/19 18:14 Dose: 100 mls/hr Documented by: Levetiracetam (Keppra Injection -) 1,500 mg IVPB BID [facility] Last Admin: 10/06/19 21:39 Dose: 1,500 mg Documented by: Lorazepam (Ativan Injection -) 2 mg IM DAILY PRN PRN Reason: ANXIETY Last Admin: 10/03/19 20:15 Dose: 2 mg Documented by: Mupirocin (Bactroban Ointment (For Decolonization) -) 1 applic NS BID [facility] Stop: 10/09/19 09:59 Last Admin: 10/06/19 21:40 Dose: 1 applic Documented by: Zonisamide (Zonisamide) 100 mg PO BID [facility] Last Admin: 10/06/19 23:32 Dose: 100 mg Documented by: - Objective Vital Signs: Vital Signs Temperature 98.9 F 10/07/19 06:00 Pulse Rate 69 10/07/19 08:00 Respiratory Rate 19 10/07/19 08:11 Blood Pressure 113/73 10/07/19 08:00 O2 Sat by Pulse Oximetry (%) 98 10/07/19 08:11 Constitutional: Yes: Well Nourished Eyes: Yes: WNL Neurological: Yes: Alert, Oriented, Babinski negative, Cran Nerves II-XII Intact Labs: CBC, BMP 10/07/19 05:50 10/07/19 05:50 Problem List - Problems (1) Closed head injury Code(s): S09.90XA - UNSPECIFIED INJURY OF HEAD, INITIAL ENCOUNTER (2) Headache Code(s): R51 - HEADACHE (3) Seizure disorder Code(s): G40.909 - EPILEPSY, UNSP, NOT INTRACTABLE, WITHOUT STATUS EPILEPTICUS Assessment/Plan 1. Can be moved out of the medical ICU. 2. Continue Keppra at 1500 mg twice daily. 3. Add Lamictal 50 mg once daily. 4. Zonogram 100 mg twice a day. 5. Seizure precautions. 6. Discharge planning
[2019-10-07] MEDS: SODIUM CHLORIDE 1,000 ML IV SCH (11:02)
[2019-10-07] MEDS: ENOXAPARIN NA (PORCINE) 40 MG/0.4 ML DISP.SYRIN SQ SCH (11:02)
[2019-10-07] MEDS: levETIRAcetam 500 MG/5 ML INJECTION VIAL IVPB SCH (11:03)
[2019-10-07] MEDS: MUPIROCIN 2% TOPICAL OINTMENT FOR DECOLONIZATION NS SCH (11:06)
[2019-10-07] MEDS: ZONISAMIDE 100 MG/10 ML ORAL SUSPENSION PO SCH (11:52)
--- NOTE | 2019-10-07 13:40 | PN ---
Teaching Attending Note Name of Resident: Michael Coburn ATTENDING PHYSICIAN STATEMENT I saw and evaluated the patient. I reviewed the resident's note and discussed the case with the resident. I agree with the resident's findings and plan as documented. SUBJECTIVE: Pt seen and examined in the ICU. Doing well. No further seizures. Low grade feve r overnight. OBJECTIVE: Vital Signs Period Temp Pulse Resp BP Sys/Henderson Pulse Ox Last 24 Hr 98.6 F-100.7 F 69-104 16-23 96-122/67-80 86-100 Gen: NAD at rest Heart: RRR Lung: decreased breath sounds at the bases Abd: soft, nontender Ext: no edema CBC, BMP 10/07/19 05:50 10/07/19 05:50 Active Medications Acetaminophen (Tylenol -) 500 mg PO Q6H PRN PRN Reason: FEVER OR PAIN Last Admin: 10/06/19 21:40 Dose: 500 mg Documented by: Chlorhexidine Gluconate (Hibiclens For Decolonization -) 1 applic TP HS [facility] Last Admin: 10/06/19 21:39 Dose: 1 applic Documented by: Enoxaparin Sodium (Lovenox -) 40 mg SQ DAILY [facility] Last Admin: 10/07/19 11:02 Dose: 40 mg Documented by: Sodium Chloride (Normal Saline -) 1,000 mls @ 100 mls/hr IV ASDIR [facility] Last Admin: 10/07/19 11:02 Dose: 100 mls/hr Documented by: Lamotrigine (Lamictal -) 50 mg PO DAILY [facility] Levetiracetam (Keppra Injection -) 1,500 mg IVPB BID [facility] Last Admin: 10/07/19 11:03 Dose: 1,500 mg Documented by: Lorazepam (Ativan Injection -) 2 mg IM DAILY PRN PRN Reason: ANXIETY Last Admin: 10/03/19 20:15 Dose: 2 mg Documented by: Mupirocin (Bactroban Ointment (For Decolonization) -) 1 applic NS BID [facility] Stop: 10/09/19 09:59 Last Admin: 10/07/19 11:06 Dose: 1 applic Documented by: Zonisamide (Zonisamide) 100 mg PO BID [facility] Last Admin: 10/07/19 11:52 Dose: 100 mg Documented by: ASSESSMENT AND PLAN: Acute Respiratory Failure Status Epilepticus - f/u cultures - antiepileptics per neuro - DVT prophylaxis - can monitor on floor
--- NOTE | 2019-10-07 14:20 | PN ---
Progress Note (short form) - Note Progress Note: Patient is a 38 y/o F with a significant PMH of anxiety, fibromylagia, and seizure disorder who was transferred to [facility] ICU from [place] for refractory status epilepticus requiring intubation and sedation. Patient now extubated and in no distress. No seizure overnight. Currently being maintained on Keppra at 1500 mg twice daily, Lamictal 50 mg once daily, and Zonogram 100 mg twice a day. Patient to be transferred to med-surg. PE: AAOx3 NAD RRR S1S2 CTAB No wheezing, rhonchi, or rales NDNT CN 2-12 intact. SILT throughout. No CCE
[2019-10-07] MEDS ORDERED: LORazepam 2 MG/ML SDV VIAL IM PRN (14:59)
[2019-10-07] MEDS ORDERED: SODIUM CHLORIDE 1,000 ML IV SCH (14:59)
[2019-10-07] MEDS ORDERED: ACETAMINOPHEN 500 MG TABLET (FP) PO PRN (14:59)
--- NOTE | 2019-10-07 21:38 | PN ---
Progress Note (short form) - Note Progress Note: This is a 38 y/o F with a PMHx of anxiety, fibromylagia, and seizure disorder (on 2 antiseizure medications) sent from [place] for mgmt of refractory status epilepticus. Pt was at [place] for video EEG monitoring and while speaking to the physician, the pt began to seize. Pt was lorazepam 2 mg with minimal effect and another was needed (Total of 6 given for 3 separate seizure episodes per nursing report. Pt became somnolent with dilated pupils and rhythmic eye movements so call placed to ED (Dr. Cruz) who gave 1000 mg of depakote. Pt was sedated with propofol and intubated at that time and transferred to our ICU. Vent settings: TV 450 PEEP 5, RR12 ,50% O2 and sedated on prop and versed with a RASS of -5. Utox negative, UA negative, negative for , glucose 107. Pt was given Keppra 1500 mg IV q12, Ativan prn, and Zonegran. Pt was extubated and breathing 100% RA. Pt improved. Stable for transfer to [facility] Keppra was changed to 1500 mg PO BID and zonegran is 100 mg PO BID. Lamotrigine 50 mg PO daily was added. GENERAL: AAOX3 HEENT: Normal with no signs of trauma. Pupils equal, round and reactive to light. LUNGS: Breath sounds equal, clear to auscultation bilaterally. No wheezes, and no crackles. No accessory muscle use. HEART: Regular rate and rhythm, normal S1 and S2 without murmur, rub or gallop. ABDOMEN: Soft, not distended, nontender, normoactive bowel sounds. SKIN: Warm, dry, normal turgor, ecchymoses in L antecubital
[2019-10-07] MEDS: levETIRAcetam 500 MG TABLET (FP) PO SCH (21:41)
[2019-10-07] MEDS: ZONISAMIDE 100 MG CAPSULE PO SCH (21:41)
[2019-10-07] MEDS ORDERED: levETIRAcetam 500 MG/5 ML INJECTION VIAL IVPB SCH (22:00)
[2019-10-07] MEDS ORDERED: ZONISAMIDE 100 MG/10 ML ORAL SUSPENSION PO SCH (22:00)
[2019-10-08] MEDS ORDERED: lamoTRIgine 25 MG TABLET PO SCH (10:00)
[2019-10-08] MEDS ORDERED: ENOXAPARIN NA (PORCINE) 40 MG/0.4 ML DISP.SYRIN SQ SCH (10:00)
[2019-10-08] MEDS ORDERED: PT OWN MED DRAWER 7, Y5N ONE (10:08)
[2019-10-08] MEDS: levETIRAcetam 500 MG TABLET (FP) PO SCH (10:12)
[2019-10-08] MEDS: ZONISAMIDE 100 MG CAPSULE PO SCH (10:12)
[2019-10-08 14:29] VITALS: BP 101/68; PULSE 73; TEMP 98
--- NOTE | 2019-10-08 14:29 | PN ---
Teaching Attending Note Name of Resident: Vickie Nino ATTENDING PHYSICIAN STATEMENT I saw and evaluated the patient. I reviewed the resident's note and discussed the case with the resident. I agree with the resident's findings and plan as documented. SUBJECTIVE: Patient feels well, ready for discharge OBJECTIVE: Vital Signs Period Temp Pulse Resp BP Sys/Henderson Pulse Ox Last 24 Hr 98 F-100.0 F 59-97 18-20 101-123/58-80 94-98 GENERAL: Awake, alert, in no acute distress. HEAD: Normal with no signs of trauma. EYES: Pupils equal, round and reactive to light, extraocular movements intact, sclera anicteric, conjunctiva clear. EARS, NOSE, THROAT: Ears normal, nares patent, Moist mucous membranes. NECK: Normal range of motion, No JVD, LUNGS: Breath sounds equal, clear to auscultation bilaterally. No wheezes, and no crackles. No accessory muscle use. HEART: Regular rate and rhythm, normal S1 and S2 without murmur, rub or gallop. ABDOMEN: Soft, nontender, not distended, normoactive bowel sounds, no guarding, no rebound, MUSCULOSKELETAL: Normal range of motion at all joints. No bony deformities or tenderness. No CVA tenderness. EXTREMITIES: 2+ pulses, warm, well-perfused. No calf tenderness. No peripheral edema. NEUROLOGICAL: Cranial nerves II-XII intact. Normal speech. PSYCHIATRIC: Cooperative. Good eye contact. Appropriate mood and affect. SKIN: Warm, dry, normal turgor, no rashes or lesions noted. ASSESSMENT AND PLAN: 38 y/o F with PMh of anxiety disorder and complex partial seizure who was admitted for video EEG monitoring for break through seizures. Patient was noted to be in status epilepticus, was intubated/sedated and transferred to [facility]. Status Epilepticus: Now resolved Continue increased dose of Antiepileptic medications as per neuro. Off all O2 at this time Can be discharged from a medicine perspective
--- NOTE | 2019-10-08 17:34 | DS ---
Physical Exam: SUBJECTIVE: Patient seen and examined today, was walked by staff and found to be stable, without risk of falls, dizzyness or syncopal episodes. Medically stable for discharge OBJECTIVE: Vital Signs Period Temp Pulse Resp BP Sys/Henderson Pulse Ox Last 24 Hr 98 F-100.0 F 59-88 18-20 101-120/58-80 94-98 PHYSICAL EXAM GENERAL: The patient is awake, alert, and fully oriented, in no acute distress. HEAD: Normal with no signs of trauma. EYES: PERRL, extraocular movements intact, sclera anicteric, conjunctiva clear. ENT: Ears normal, nares patent, oropharynx clear without exudates, moist mucous membranes. NECK: Trachea midline, full range of motion, supple. LUNGS: Breath sounds equal, clear to auscultation bilaterally, no wheezes, no crackles, no accessory muscle use. HEART: Regular rate and rhythm, S1, S2 without murmur, rub or gallop. ABDOMEN: Soft, nontender, nondistended, normoactive bowel sounds, no guarding EXTREMITIES: 2+ pulses, warm, well-perfused, no edema. NEUROLOGICAL: Cranial nerves II through XII grossly intact. Normal speech, gait not observed. PSYCH: Normal mood, normal affect. SKIN: Warm, dry, normal turgor, no rashes or lesions noted. LABS Laboratory Results - last 24 hr 10/05/19 15:30 Prolactin 36.5 H HOSPITAL COURSE: Date of Admission:10/01/19 CXR: No acute pathology --> Repeat CXR showed mild atelectasis following extubation EKG: SINUS TACHYCARDIA; NONSPECIFIC ST ABNORMALITY Date of Discharge: 10/08/19 38 y/o F with a PMHx of anxiety, fibromylagia, seizure disorder (on 2 antiseizure medications), and asthma initially presented to [place] for elective outpatient video EEG monitoring of her seizure activity. While undergoing monitoring, ptn began seizing, requiring 6mg of lorazepam to lula the seizure. Following the medication, ptn became somnolent w/ dilated pupils and rhythmic eye movements which resulted in the ED (Dr. Cruz) being called with Depakote 1000 mg administered. Following this, the patient was sedated with propofol and intubated and sent to the ICU for further monitoring. Midazolam was added for futher sedation. During the ptns ICU course, their home medication Zonisamide 100mg BID was con tinued, and their Keppra levels adjusted to 1500mg BID, additionally Lamictal 50mg qD was started. Following stabilization in the ICU, they were extubated without incident and transferred to the medical floors. On the medical floors, the patient was monitored while walking for any signs of neuro compromise, and deemed at this point medically stable to be discharged home with outpatient Neurology followup. Minutes to complete discharge: 36 Discharge Summary Problems reviewed: Yes Reason For Visit: GENERALIZED IDIOPATHIC EPILEPSY, INTRACTABLE, W/O Condition: Stable - Instructions Diet, Activity, Other Instructions: Summary: You were initially seen in [place] for monitoring of seizure activity. You were later admitted to [facility] after having a large seizure while being monitored which required both medication, and breathing tube in order to control your seizure activity and breathing. Additional anti- seizure medication was started, and your symptoms improved. Your seizure activity has stopped. Medications: -Please note: -We have added a medication called Lamotrigine (Lamictal) 50mg (two 25mg tablets) one time per day -Your Levatiraceam (Keppra) was increased to 1500mg two times per day. Please take 3 tablets (500mg each) two times per day, this will total 1500mg two times per day. -Continue Zonisamide (Zonogram) 100mg two times per day. -Please continue to take the rest of your home medications as prescribed by your doctor. Follow up: - Dr. Shahla Lee (Neurology) Please follow up within 1 week to reassess your neurologic status. - Dr. Cosmo Cooper(Primary Care) - Please follow up within 1-2 weeks Additional Instructions: -You are being discharged to your home. -Please return to the Emergency Department if you experience any further seizure exacerbations, worsening pain, fevers, chills, shortness of breath, chest pain, or if you experience any worsening, new or concerning symptoms. Referrals: Cosmo Cooper [Non Staff, Medical] - 2 Weeks Shahla Lee MD [Staff Physician] - 1 Week Disposition: HOME - Home Medications Comprehensive Discharge Medication List: Ambulatory Orders Folic Acid 1 mg BID 10/08/19 Lamotrigine [Lamictal -] 50 mg PO DAILY 30 Days #60 tablet 10/08/19 Mirtazapine 15 mg PO HS 10/08/19 Montelukast Sodium 10 mg PO DAILY 10/08/19 Naproxen 250 mg PO BID 10/08/19 Zonisamide [Zonegran -] 100 mg PO BID 10/08/19 levETIRAcetam [Keppra -] 1,500 mg PO BID 30 Days #180 tablet 10/08/19 predniSONE [Deltasone -] 2.5 mg PO DAILY 10/08/19 This patient is new to me today: Yes Date on this admission: 10/08/19 Emergency Visit: No Critical Care patient: No - Discharge Referral Referred to [facility] Med P.C[facility] No ATTENDING PHYSICIAN STATEMENT I saw and evaluated the patient. I reviewed the resident's note and discussed the case with the resident. I agree with the resident's findings and plan as documented. SUBJECTIVE: OBJECTIVE: ASSESSMENT AND PLAN:
== END 2019-10-08 17:55 | disposition home or self-care (01) | DRG 53 ==
LOC: FM/S 16:54 → JICU 10-04 02:33 → J8W 10-07 16:37
PROVIDERS: ADMIT Psychiatry & Neurology Neurology; ATTEND Internal Medicine
PROC: 4A10X4Z Monitoring of Central Nervous Electrical Activity, External Approach (ICD-10-PCS; principal; 2019-10-01)
PROC: 0CHY7BZ Insertion of Airway into Mouth and Throat, Via Natural or Artificial Opening (ICD-10-PCS; 2019-10-04)
PROC: 5A1945Z Respiratory Ventilation, 24-96 Consecutive Hours (ICD-10-PCS; 2019-10-04)
DX: G40.401 Other generalized epilepsy and epileptic syndromes, not intractable, with status epilepticus (principal); J96.00 Acute respiratory failure, unspecified whether with hypoxia or hypercapnia; R51 Headache; D72.829 Elevated white blood cell count, unspecified; F41.9 Anxiety disorder, unspecified; J98.11 Atelectasis; R00.0 Tachycardia, unspecified
CPT/HCPCS: 36415; 36600; 71045-TC-FY; 80053; 80177; 80307; 81003; 82550; 82553; 82803; 82962; 83735; 84100; 84146; 84703; 85025; 85027; 87040; 87086; 87186; 93005; 94002; 95705; U0003

== ENCOUNTER 2020-03-20 10:55 | Emergency (ER) | payer OTHER ==
[2020-03-20 11:45] VITALS: TEMP 97.8; BMI 31.4
[2020-03-20] MEDS ORDERED: SODIUM CHLORIDE 0.9% 500 ML INFUS.BAG IV ONE (12:55)
[2020-03-20] MEDS ORDERED: ACETAMINOPHEN 1000 MG/100 ML VIAL (NON FORMULARY) IVPB ONE (12:55)
[2020-03-20] MEDS ORDERED: ACETAMINOPHEN INJECTION 100 ML IVPB ONE (13:26)
[2020-03-20 14:28] LABS: BASO % 0.5 % (0-2.0); EOS % 0.1 % (0-4.5); HEMATOCRIT 42.1 % (32.4-45.2); LYMPH % 25.1 % (8-40); MCHC 33.2 g/dl (32.0-36.0); MEAN CELL VOLUME 93.3 fl (80-96); MONO % 6.8 % (3.8-10.2); NEUT % 67.5 % (42.8-82.8); PLATELET COUNT 278 K/MM3 (134-434); RBC 4.51 M/mm3 (3.60-5.2); RDW 13.2 % (11.6-15.6); WHITE BLOOD COUNT 7.4 K/mm3 (4.0-10.0)
[2020-03-20] MEDS ORDERED: METOCLOPRAMIDE HCL INJECTION 10 MG/2 ML VIAL IVPB ONE (14:34)
[2020-03-20] MEDS ORDERED: METOCLOPRAMIDE HCL INJECTION 10 MG/2 ML VIAL ONE (14:47)
[2020-03-20 14:51] LABS: CHLORIDE 107 mmol/L (98-107); POTASSIUM 3.9 mmol/L (3.5-5.1); SODIUM 139 mmol/L (136-145)
[2020-03-20 14:53] LABS: CALCIUM 8.9 mg/dL (8.5-10.1)
[2020-03-20 14:54] LABS: ALBUMIN 4.2 g/dl (3.4-5.0); ANION GAP 8 MMOL/L (8-16); CO2 25 mmol/L (21-32); GLUCOSE,RANDOM 80 mg/dL (74-106)
[2020-03-20 14:57] LABS: CREATININE 0.9 mg/dL (0.55-1.3); PHOSPHOROUS 3.3 mg/dL (2.5-4.9); SGOT/AST 20 U/L (15-37); SGPT/ALT 20 U/L (13-61)
[2020-03-20 14:58] LABS: BILIRUBIN,TOTAL 0.2 mg/dL (0.2-1); TOT PROT 8.7 g/dl (6.4-8.2)
[2020-03-20 14:59] LABS: ALK PHOS 96 U/L (45-117)
[2020-03-20 20:07] VITALS: BP 124/78; PULSE 89
== END 2020-03-20 16:35 | disposition home or self-care (01) ==
LOC: JER 10:55
PROC: 3E033GC Introduction of Other Therapeutic Substance into Peripheral Vein, Percutaneous Approach (ICD-10-PCS; principal; 2020-03-20)
DX: G40.89 Other seizures (principal); R51.9 Headache, unspecified
CPT/HCPCS: 36415; 70450-TC; 71045-TC-FY; 72125-TC; 72128-TC; 80053; 80175; 80177; 80203; 82550; 82553; 83735; 84100; 84484; 84703; 85025; 93005; 93010; 99285-25; J0131